=== PATIENT | male | born 1980 ===

== ENCOUNTER 2024-06-29 08:05 | Inpatient (IN) | payer MEDICAID ==
[2024-06-29] VITALS (41 sets, daily range): BP systolic 88–112; BP diastolic 62–80
[~2024-06-29] VITALS: Ht 170.2 cm; Wt 42.9 kg
[2024-06-29] MEDS ORDERED: Lactated Ringer's 1,000 ML IV ONE ×2 (08:40→08:58)
[2024-06-29] MEDS ORDERED: Ondansetron HCl 2 MG / ML 2ML Vial ONE (08:54)
[2024-06-29] MEDS ORDERED: Dextrose 50% 50 ML Syringe IV ONE ×2 (09:00→18:33)
[2024-06-29] MEDS ORDERED: Pantoprazole Sodium 40 MG Injection IV ONE (09:00)
[2024-06-29] MEDS ORDERED: Azithromycin 500 MG in NS 250 ML IV ONE (09:05)
[2024-06-29] MEDS ORDERED: CefTRIAXone Sodium 1,000 MG in NS 50 ML IV ONE (09:05)
[2024-06-29] MEDS ORDERED: Dextrose 50% 50 ML Vial IV ONE ×2 (09:10→18:30)
[2024-06-29 09:12] LABS: BASOPHILS ABSOLUTE AUTO 0.01 K/mm3 (0.00-0.23); BASOPHILS PERCENT AUTO 0 % (0-2); EOSINOPHILS PERCENT AUTO 0 % (0-6); IMMATURE GRAN ABSOLUTE AUTO 0.02 K/mm3 (0.00-0.10); IMMATURE GRAN PERCENT AUTO 0 % (0-1); LYMPHOCYTES ABSOLUTE AUTO 0.55 K/mm3 (0.84-5.20); LYMPHOCYTES PERCENT AUTO 8 % (21-46); MONOCYTES ABSOLUTE AUTO 0.05 K/mm3 (0.16-1.47); MONOCYTES PERCENT AUTO 1 % (4-13); Mean Corpuscular HGB 15.5 pg (26.0-34.0); Mean Corpuscular HGB Conc 26.3 g/dL (31.5-36.5); Mean Corpuscular Volume 59 fL (80-100); NEUTROPHILS ABSOLUTE AUTO 6.43 K/mm3 (1.96-9.15); NEUTROPHILS PERCENT AUTO 91 % (41-73); Platelet Count 345 K/mm3 (150-400); RDW Coefficient Variation 22.9 % (11.7-14.2); RDW Standard Deviation 44.8 fL (35.1-46.3); Red Blood Cell Count 2.96 M/mm3 (4.30-5.90); White Blood Cell Count 7.06 K/mm3 (4.00-11.30)
[2024-06-29] MEDS ORDERED: NS 1,000 ML IV ONE (09:16)
[2024-06-29 09:26] LABS: Mean Platelet Volume 10.1 fL (9.1-12.4)
[2024-06-29 09:26] LABS: Calcium, Ionized (POC) 1.15 mmol/L (1.10-1.46); Chloride (POC) 106 mmol/L (98-108); Creatinine (POC) 1.1 mg/dL (0.8-1.3); Glucose (ISTAT POC) <10 mg/dL (70-99); Hemoglobin (POC) 6.5 g/dL (13.5-17.5); Potassium (POC) 3.8 mmol/L (3.5-5.5); Sodium (POC) 142 mmol/L (135-148); Total CO2 (POC) 24 mmol/L (21-32)
[2024-06-29 09:28] LABS: Hematocrit 17.5 % (37.0-53.0); Hemoglobin 4.6 g/dL (13.5-17.5)
[2024-06-29 09:35] LABS: International Normalized Ratio 1.54
[2024-06-29 09:51] LABS: Magnesium, Blood 2.5 mg/dL (1.6-2.4); Thyroid Stimulating Hormone 1.22 uIU/mL (0.360-4.800)
[2024-06-29] MEDS ORDERED: Ondansetron HCl 2 MG / ML 2ML Vial IV ONE (09:55)
[2024-06-29 09:57] LABS: Influenza A, PCR NEGATIVE (NEGATIVE); Influenza B, PCR NEGATIVE (NEGATIVE); Resp Syncytial Virus, PCR NEGATIVE (NEGATIVE); SARS-Cov-2 (COVID-19) PCR, MMC NEGATIVE (NEGATIVE)
[2024-06-29 10:02] LABS: Albumin, Blood 2.5 g/dL (3.4-5.0); Albumin/Globulin Ratio 0.6 (0.8-1.8); Bilirubin, Total 0.3 mg/dL (0.1-1.0); Bun/Creatinine Ratio 71.8 (12.0-20.0); Calcium, Blood 8.2 mg/dL (8.5-10.1); Creatinine, Blood 0.66 mg/dL (0.60-1.20); Globulin, Blood 4.3 g/dL (2.2-4.0); Potassium, Blood 3.8 mmol/L (3.5-5.5); Total Protein, Blood 6.8 g/dL (6.4-8.2)
[2024-06-29 10:35] LABS: Source, Urine Foley catheter
[2024-06-29 10:39] LABS: Appearance, Urine Clear (Clear); Bilirubin, Urine Neg (Neg); Blood, Urine Neg (Neg); Color, Urine Yellow (P-Yellow); Glucose Qualitative, Urine Neg (Neg); Ketones, Urine Neg (Neg); Leukocyte Esterase, Urine Neg (Neg); Nitrite, Urine Neg (Neg); Protein, Urine Neg (Neg); Urobilinogen, Urine NORM (Normal)
[2024-06-29] MEDS ORDERED: propofoL 100 ML IV SCH (10:45)
[2024-06-29] MEDS ORDERED: D5W-1/2NS 1,000 ML IV SCH (10:50)
[2024-06-29] MEDS ORDERED: FLU VACC TS2024-25(6MOS UP)/PF 45 MCG/0.5 ML SYRINGE IM SCH (10:50)
[2024-06-29 10:55] LABS: Base Excess Venous 0.8 mmol/L; Bicarbonate Venous 23.1 mmol/L (24.0-30.0); pH Blood Venous 7.32 (7.34-7.37)
[2024-06-29] MEDS ORDERED: MethylPREDNISolone Sod Succ 125 MG Vial IV SCH (11:00)
[2024-06-29] MEDS ORDERED: Pantoprazole Sodium 40 MG Injection IV SCH (11:00)
[2024-06-29 11:08] LABS: U Amphetamine Screen DETECTED; U Barbituate Screen Not Detected; U Benzodiazapine Screen Not Detected; U Buprenorphine Screen Not Detected; U Cannabinoids Screen Not Detected; U Cocaine Screen Not Detected; U Methadone Screen Not Detected; U Methamphetamine Screen DETECTED; U Opiates Screen Not Detected; U Oxycodone Screen Not Detected; U Phencyclidine Screen Not Detected
[2024-06-29] MEDS ORDERED: Midazolam HCl 1MG / ML 2ML Vial IV ONE ×2 (11:20→18:30)
[2024-06-29] MEDS ORDERED: Piperacillin/Tazobactam Sod 3.375 GM in NS 100 ML IV ONE (11:35)
[2024-06-29] MEDS ORDERED: Vancomycin HCL 1,250 MG in NS 250 ML IV ONE (11:40)
[2024-06-29] MEDS ORDERED: TRIMETHOPRIM IV ONE (14:40)
[2024-06-29] MEDS ORDERED: DEXTROSE 5% IV ONE (14:40)
[2024-06-29] MEDS ORDERED: SULFAMETHOXAZOLE IV ONE (14:40)
[2024-06-29] MEDS ORDERED: Cetylpyridinium Chloride 1 EA MISC MT SCH (15:10)
[2024-06-29] MEDS ORDERED: LORazepam 2 MG/ML 1ML Injection IV PRN (15:10)
[2024-06-29] MEDS ORDERED: FentaNYL Citrate 50 MCG/ML 2 ML Injection IV PRN (15:10)
[2024-06-29] MEDS ORDERED: Piperacillin/Tazobactam Sod 3.375 GM in NS 100 ML IV SCH (16:00)
[2024-06-29] MEDS ORDERED: Hydrogen Peroxide 1.5 % Solution MT SCH (16:00)
[2024-06-29] MEDS ORDERED: NS 500 ML IV ONE (17:21)
[2024-06-29] MEDS ORDERED: NS 500 ML IV PRN (17:25)
[2024-06-29] MEDS ORDERED: Dextrose 50% 50 ML Vial ONE (18:14)
[2024-06-29 18:30] LABS: Hematocrit 24.9 % (37.0-53.0); Hemoglobin 7.7 g/dL (13.5-17.5); Mean Corpuscular HGB 20.6 pg (26.0-34.0); Mean Corpuscular HGB Conc 30.9 g/dL (31.5-36.5); NRBC ABSOLUTE 0.02 K/mm3 (0.00-0.02); NRBC Auto 0.8 /100 WBC (0.0-0.2); Platelet Count 192 K/mm3 (150-400); RDW Coefficient Variation 27.1 % (11.7-14.2); RDW Standard Deviation 63.6 fL (35.1-46.3); Red Blood Cell Count 3.73 M/mm3 (4.30-5.90); White Blood Cell Count 2.58 K/mm3 (4.00-11.30)
[2024-06-29] MEDS ORDERED: SuccINYLCHOLINE Chloride 100 MG/5 ML 5MLSYR IV ONE (18:30)
[2024-06-29] MEDS ORDERED: Ketamine HCl 100 MG / ML 5ML Vial IV ONE (18:30)
[2024-06-29 18:31] LABS: Mean Corpuscular Volume 67 fL (80-100)
[2024-06-29 18:35] LABS: Percent Saturation 35.5 % (20.0-50.0)
[2024-06-29 18:53] LABS: BAND PERCENT MAN 18 % (0-8); BASOPHILS PERCENT MAN 0 % (0-2); EOSINOPHILS PERCENT MAN 0 % (0-6); LYMPHOCYTES PERCENT MAN 8 % (21-46); MONOCYTES PERCENT MAN 0 % (4-13); NEUTROPHILS ABSOLUTE MAN 2.37 K/mm3 (1.96-9.15); SEG NEUTROPHILS PERCENT MAN 74 % (41-73); TOTAL CELLS COUNTED 100
--- NOTE | 2024-06-29 21:29 | NUR ---
ASSUMPTION OF CARE ASSUMED CARE OF PATIENT AT 1900, BEDSIDE SHIFT REPORT RECEIVED FROM KE RN. PT RESTING IN BED INTUBATED AND SEDATED. PROPOFOL INFUSING AT 30MCG/KG/MIN. PT WITHDRAWS ALL EXTREMITIES TO PAINFUL STIMULI. PT DOES NOT FOLLOW DIRECTION, DOES NOT OPEN EYES WITH STIMULATION. HR 70'S SINUS, LEVOPHED INFUSING AT 8MCG/MIN TO MAINTAIN MAP >65. VENT SETTINGS AC/VC+ 16/450/5/55%, OXYGEN SATURATION >95%. ABDOMEN SOFT, BOWEL TONES HYPOACTIVE. OG TUBE IN PLACE CLAMPED. TEMP VELASCO IN PLACE PATENT DRAINING DARK YELLOW URINE TO GRAVITY. PIV IN PLACE TO RFA, TIMOTHY, AND LFA SL. CENTRAL LINE IN PLACE TO RIJ INFUSING D5 1/2 NS AT 75MLS/HR. LEVOPHED AND PROPOFOL ALSO INFUSING THROUGHOUT CENTRAL LINE, SEE FLOWSHEET FOR MEDICATION TITRATIONS. BED IN LOWEST POSITION, CARE CONTINUES.
[2024-06-30] VITALS (100 sets, daily range): BP systolic 82–106; BP diastolic 48–78
[2024-06-30] MEDS ORDERED: DEXTROSE 5% IV SCH
[2024-06-30] MEDS ORDERED: TRIMETHOPRIM IV SCH
[2024-06-30] MEDS ORDERED: SULFAMETHOXAZOLE IV SCH
[2024-06-30] MEDS ORDERED: NS 250 ML IV PRN (00:15)
[2024-06-30 00:33] LABS: Hematocrit 23.2 % (37.0-53.0); Hemoglobin 7.2 g/dL (13.5-17.5)
[2024-06-30] MEDS ORDERED: Vancomycin HCL 750 MG in NS 250 ML IV SCH (01:00)
[2024-06-30 04:01] LABS: Base Excess Venous 0.9 mmol/L; Bicarbonate Venous 24.9 mmol/L (24.0-30.0); PCO2 Venous 34.2 mmHg (38-42); pH Blood Venous 7.47 (7.34-7.37)
[2024-06-30 04:10] LABS: Hematocrit 21.4 % (37.0-53.0); Hemoglobin 6.9 g/dL (13.5-17.5); Mean Corpuscular HGB 21.2 pg (26.0-34.0); Mean Corpuscular HGB Conc 32.2 g/dL (31.5-36.5); Mean Corpuscular Volume 66 fL (80-100); Mean Platelet Volume 9.3 fL (9.1-12.4); Platelet Count 134 K/mm3 (150-400); RDW Standard Deviation 60.3 fL (35.1-46.3); Red Blood Cell Count 3.26 M/mm3 (4.30-5.90); White Blood Cell Count 12.61 K/mm3 (4.00-11.30)
--- NOTE | 2024-06-30 04:29 | NUR ---
PROVIDER NOTIFICATION OF WOUNDS DR. PALOMINO NOTIFIED OF WOUNDS. CARE CONTINUES.
[2024-06-30 04:39] LABS: Albumin, Blood 1.9 g/dL (3.4-5.0); Albumin/Globulin Ratio 0.6 (0.8-1.8); Bilirubin, Total 0.8 mg/dL (0.1-1.0); Calcium, Blood 7.3 mg/dL (8.5-10.1); Creatinine, Blood 0.67 mg/dL (0.60-1.20); Globulin, Blood 3.4 g/dL (2.2-4.0); Magnesium, Blood 1.7 mg/dL (1.6-2.4); Phosphorus, Blood 2.6 mg/dL (2.5-4.9); Potassium, Blood 4.5 mmol/L (3.5-5.5); Total Protein, Blood 5.3 g/dL (6.4-8.2)
[2024-06-30 05:30] LABS: BAND PERCENT MAN 30 % (0-8); BASOPHILS PERCENT MAN 0 % (0-2); EOSINOPHILS PERCENT MAN 0 % (0-6); LYMPHOCYTES ABSOLUTE MAN 0.37 K/mm3 (0.84-5.20); LYMPHOCYTES PERCENT MAN 3 % (21-46); METAMYELOCYTE ABSOLUTE MAN 0.37 K/mm3 (0.00-0.00); METAMYELOCYTE PERCENT MAN 3 % (0-0); MONOCYTES PERCENT MAN 0 % (4-13); NEUTROPHILS ABSOLUTE MAN 11.85 K/mm3 (1.96-9.15); SEG NEUTROPHILS PERCENT MAN 64 % (41-73); TOTAL CELLS COUNTED 100
--- NOTE | 2024-06-30 05:49 | NUR ---
PT UPDATE HGB RESULTED THIS AM AT 6.9, ORDER FROM DR. DIAZ TO TRANSFUSE 1 UNIT PRBC FOR HGB LESS THAN 7. ORDER PLACED FOR BLOOD TRANSFUSION. UPON REVEIWING THE CHART PT DOES NOT HAVE BLOOD CONSENT SIGNED AT THIS TIME. PT HAS PREVIOUSLY RECEIVED 2 UNITS PRBC'S IN THE ER, PT INTUBATED AND UNABLE TO CONSENT TO BLOOD TRANSFUSION. NO FAMILY PRESENT OR LISTED ON THE PATIENTS FACE SHEET. OKAY TO TRANSFUSE BLOOD PRODUCTS AT THIS TIME PER DR. PALOMINO DUE TO PT EMERGENT NEED.
--- NOTE | 2024-06-30 05:53 | NUR ---
SHIFT SUMMARY NO ACUTE CHANGES THIS SHIFT. PT CONTINUES TO REST IN BED, INTUBATED AND SEDATED. PROPOFOL INFUSING AT 15MCG/KG/MIN. PT WITHDRAWS EXTREMITIES TO NOXIOUS STIMULI, GRIMACES, AND MOVES LEGS SPONTANEOUSLY. PT DOES NOT FOLLOW DIRECTION WHEN PROMPTED. HR 60-80'S SINUS, LEVOPHED INFUSING AT 3MCG/MIN TO MAINTAIN MAP >65. VENT SETTINGS AC/VC+ 16/450/5/35%, OXYGEN SATURATION >95%. BOWEL TONES ACTIVE THROUGHOUT, OG TUBE IN PLACE CLAMPED. TEMP VELASCO IN PLACE PATENT DRAINING YELLOW URINE TO GRAVITY. PIV IN PLACE TO RFA, LFA AND TIOMTHY. CENTRAL LINE IN PLACE TO RIJ. D5 1/2 NS INFUSING AT 75MLS/HR. BED IN LOWEST POSITION, CARE CONTINUES.
[2024-06-30] MEDS ORDERED: FentaNYL Citrate 50 MCG/ML 2 ML Injection IV SCH (12:00)
[2024-06-30 13:23] LABS: Hematocrit 23.3 % (37.0-53.0); Hemoglobin 7.7 g/dL (13.5-17.5)
[2024-06-30] MEDS ORDERED: Midazolam HCL 50 MG in NS 40 ML IV SCH (14:00)
[2024-06-30] MEDS ORDERED: Atropine Sulfate 0.1 MG/ML 10ML SYR IV PRN (14:20)
[2024-06-30 16:44] LABS: Vancomycin, Trough 20.2 ug/mL (5.0-10.0)
--- NOTE | 2024-06-30 17:53 | NUR ---
MOTHER'S CONTACT INFO VANESA GARZA [phone] MOTHER LIVES IN [place]
[2024-06-30] MEDS ORDERED: DOPamine HCl 400 MG in Dextrose 5% 250 ML IV SCH (18:00)
--- NOTE | 2024-06-30 18:11 | NUR ---
Update on Family and Friend information: Per Friend who brought patient into the hospital. Friends name is Mihir Blas his number is [phone]. Mihir came in [facility] to get an update on his friend Kendell Mcclain" Merle. Mihir stated that he just got word from his sister that she found Kendell "Kike" on the streets homeless in [place]. She request to have Kendell "Kike" to stay with Mihir to get him off the streets. He agreed to let Kendell "Kike" stay, Mihir said he had to carry Kendell into the house and care for him the first night and 1/2 but didn't feel he could do more and said he needed to come into the hospital. Mihir did state that Kendell did live with him 15 yrs ago but lost contact with him. Mihir asked questions on if Kendell was waking up and how he over all was doing. Kendell's mother Xin Bloom called this evening as well. She stated she does live in [place]. Her number is [phone]. She stated she got a call today from our care management team but was not able to call till this evening. Per Dr Wright who spoke with Xin Bloom, Xin has not seen or heard from her son for a year. See Dr Wright's notes on updates she gave to Xin.
--- NOTE | 2024-06-30 18:12 | NUR ---
SHIFT SUMMARY PATIENT REMAINS INTUBATED, VENT SETTINGS AC/VC 16/450/5/35% WITH O2 SATS > 95%. PROPOFOL DISCONTINUED DUE TO BRADYCARDIA DOWN TO 40'S. ATROPINE PRN AND DOPAMINE STARTED. ECHO COMPLETED. WITH SEDATION OFF, PATIENT OPENED EYES SPONTANEOUSLY AND FOLLOWED COMMANDS TO ALL FOUR EXTREMITIES. VERSED STARTED FOR SEDATION/COMFORT. LEVOPHED OFF, WITH SBP > 90 AND MAP > 65. TRCIKLE TUBE FEEDS STARTED TODAY, PIVOT 1.5 INFUSING THROUGH OG TUBE AT 15ML/HR. TEMP VELASCO REMIANS IN PLACE, DRAINING YELLOW URINE. HEMOGLOBIN 7.7 POST UNIT OF BLOOD. 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
[2024-06-30 20:54] LABS: Hematocrit 22.9 % (37.0-53.0); Hemoglobin 7.5 g/dL (13.5-17.5)
[2024-06-30] MEDS ORDERED: Arginine/Glutamine/Calcium Hmb 1 Packet PT SCH (21:00)
[2024-06-30] MEDS ORDERED: Vancomycin HCL 1,000 MG in NS 250 ML IV SCH (21:00)
--- NOTE | 2024-06-30 22:05 | NUR ---
ASSUME CARE: BEDSIDE REPORT RECIEVED FROM BISHNU BONILLA. PT INTUBATED AND SEDATED. RASS -4. VERSED AT 4 MG/HR AT SHIFT CHANGE, TITRATED DOWN TO 1 MG/HR FOR BASELINE ASSESSMENT. SBP SOFT, MAP 60s. DOPAMINE 1 MCG/KG/MIN AT SHIFT CHANGE, DOPAMINE TITRATED TO 3 MCG/KG/MIN. SPO2>95% ON VENT, SETTINGS ACVC 16/450/9 AT 55%. WILL UPDATE NEEDED.
[2024-07-01] VITALS (91 sets, daily range): BP systolic 77–120; BP diastolic 53–86
[2024-07-01 05:07] LABS: Hematocrit 23.6 % (37.0-53.0); Hemoglobin 7.7 g/dL (13.5-17.5); Mean Corpuscular HGB 22.1 pg (26.0-34.0); Mean Corpuscular HGB Conc 32.6 g/dL (31.5-36.5); Mean Corpuscular Volume 68 fL (80-100); Platelet Count 87 K/mm3 (150-400); RDW Coefficient Variation 26.6 % (11.7-14.2); RDW Standard Deviation 63.9 fL (35.1-46.3); Red Blood Cell Count 3.48 M/mm3 (4.30-5.90); White Blood Cell Count 11.23 K/mm3 (4.00-11.30)
[2024-07-01 05:29] LABS: BAND PERCENT MAN 10 % (0-8); BASOPHILS PERCENT MAN 0 % (0-2); EOSINOPHILS PERCENT MAN 0 % (0-6); LYMPHOCYTES ABSOLUTE MAN 0.33 K/mm3 (0.84-5.20); LYMPHOCYTES PERCENT MAN 3 % (21-46); MONOCYTES ABSOLUTE MAN 0.22 K/mm3 (0.16-1.47); MONOCYTES PERCENT MAN 2 % (4-13); NEUTROPHILS ABSOLUTE MAN 10.66 K/mm3 (1.96-9.15); SEG NEUTROPHILS PERCENT MAN 85 % (41-73); TOTAL CELLS COUNTED 100
[2024-07-01 05:37] LABS: Magnesium, Blood 1.5 mg/dL (1.6-2.4)
[2024-07-01 05:41] LABS: Albumin, Blood 1.8 g/dL (3.4-5.0); Albumin/Globulin Ratio 0.5 (0.8-1.8); Bilirubin, Total 0.8 mg/dL (0.1-1.0); Bun/Creatinine Ratio 63.5 (12.0-20.0); Calcium, Blood 7.7 mg/dL (8.5-10.1); Creatinine, Blood 0.55 mg/dL (0.60-1.20); Globulin, Blood 3.6 g/dL (2.2-4.0); Phosphorus, Blood 1.7 mg/dL (2.5-4.9); Potassium, Blood 3.9 mmol/L (3.5-5.5); Total Protein, Blood 5.4 g/dL (6.4-8.2)
[2024-07-01] MEDS ORDERED: Magnesium Sulf 2 GM/Water 50ML 50 ML IV ONE (06:00)
--- NOTE | 2024-07-01 06:21 | NUR ---
SHIFT SUMMARY: PT INTUBATED AND SEDATED. VERSED ON SB FOR MOST OF THE NIGHT, RASS -3. PT STARTED PULLING AT RESTRAINTS AND BECOMING MORE AGITATED AROUND THIS AM , RASS +1, VERSED RESTARTED AT 1 MG/HR. SBP 80-90s, MAP >65. DOPAMINE AT 2 MCG/KG/MIN. SPO2>95% ON VENT, SETTINGS ACVC 16/450/5 AT 55%. OG PATENT INFUSING TF PIVOT 1.5 AT 15 ML/HR. TEMP VELASCO PATENT DRAINING TO GRAVITY. HR DROPS DOWN INTO THE 40s INTERMITTENTLY, BUT MAINLY 50s-70s. WILL REPORT TO ONCOMING RN.
[2024-07-01] MEDS ORDERED: Potassium Phosphate Dibasic 20 MM in Dextrose 5% 500 ML IV ONE (06:45)
[2024-07-01] MEDS ORDERED: Mag Sulfate 1 GM/D5% 100ML 100 ML IV STA (08:11)
--- NOTE | 2024-07-01 08:21 | NUR ---
START OF SHIFT THIS NURSE ASSUMED CARE AT APPROXIMATELY 0700. PT SEDATED AND INTUBATED ON 1 OF VERSED AND 2.5 OF DOPAMINE. PT HAS NO S/S OF PAIN AND DOES NOT FOLLOW COMMANDS, PT WILL GRIMACE TO TRAPEZIUS SQUEEZE BUT WILL NOT WITHDRAWAL OR LOCOLIZE. WILL CONTINUE WITH THE PLAN OF CARE.
[2024-07-01] MEDS ORDERED: Enoxaparin 30 MG/0.3 ML SYR SC SCH (09:00)
[2024-07-01] MEDS ORDERED: Multivitamins-Minerals Liquid 15 ML Oral Syringe PT SCH (09:00)
[2024-07-01] MEDS ORDERED: Protein Supplement 30 ML UD PT SCH (09:00)
[2024-07-01] MEDS ORDERED: Thiamine HCl 100 MG Tab PT SCH (09:00)
[2024-07-01] MEDS ORDERED: Lactobacil 2-S.Thermo-Bifido 1 1 Cap PT SCH (09:00)
--- NOTE | 2024-07-01 12:59 | NUR ---
NEURO STATUS PROVIDER ASKED PATIENT TO WIGLE TOES, PT APPEARED WEAK BUT ATTEMPTED. PT ALSO OPENED EYES WHEN INSTRUCTED, PT REQUIRES TIME TO PROCESS QUESTION AND NEEDS MULTIPLE REQUESTS BUT WILL ATTEMPT TASK.
[2024-07-01 15:02] LABS: International Normalized Ratio 1.32; Prothrombin Time Results 13.8 Sec (9.7-11.5)
[2024-07-01 15:09] LABS: Anti-Xa UFH, PHA Monitoring <0.10 IU/mL
[2024-07-01] MEDS ORDERED: Dose Adjust by Pharmacy XX STA (15:12)
[2024-07-01] MEDS ORDERED: Heparin Sodium,Porcine/0.5 NS 500 ML IV SCH (15:15)
[2024-07-01] MEDS ORDERED: Trimethoprim 80MG/Sulfamethoxazole 400MG/10ML UDC PT SCH (16:00)
[2024-07-01] MEDS ORDERED: FentaNYL Citrate 50 MCG/ML 2 ML Injection IV ONE (16:25)
[2024-07-01] MEDS ORDERED: Lansoprazole 15 MG TAB.RAP.DR PT SCH (16:30)
[2024-07-01 17:47] LABS: Automated BF RBC Count 0.029 M/mm3 (0-0)
--- NOTE | 2024-07-01 17:57 | NUR ---
SHIFT SUMMARY PT RECEIVED A VENOUS DOPPLER DUPLEX OF THE LEFT UPPER ARM, SEE REPORT FOR DETAILS. PT RECEIVED A CONTRAST CT FOR CONCERNS OF A PULMONARY EMBOLISM, SEE REPORT FOR MORE DETAILS. MD NOTIFIED THIS NURSE OF A NEW MODERATE SIZE PNEUMOTHORAX. MD PLACED R PLEURAL PIGTAIL CHEST TUBE. DURING PROCEDURE MD ORDERED A 2MG PUSH/BOLUS OF VERSED THAT WAS DRAWN FROM BAG PER MD. CULTURE OF PLEURAL FLUID SENT DOWN TO LAB FOR A CULTURE. HR GOAL CHANGED FROM 60 TO 50 FOR DOPAMINE GTT. VERSED GTT INFUSING AT 2MG/HR. PT PLACED ON AIRBORNE PRECAUTIONS D/T SUSPICIOUS ROUND CYST LIKE FINDING ON CHEST XRAY AND CT. WILL CONTINUE WITH THE PLAN OF CARE.
[2024-07-01 17:58] LABS: Body Fluid WBC Count 94480 /mm3 (0-999); RBC Count, Body Fluid 29000 /mm3 (0-0)
[2024-07-01 18:43] LABS: Total Cell Count, Body Fluid 100
[2024-07-01 19:11] LABS: Appearance, Body Fluid Turbid (Clear); Color, Body Fluid Yellow (None-Yellow)
--- NOTE | 2024-07-01 20:50 | NUR ---
ASSUME CARE: REPORT RECIEVED FROM DAY SHIFT RN. PT INTUBATED AND SEDATED, RASS -3. VERSED GTT AT 2 MG/HR. SBP 110s, MAP>65. HR 50s, HR HIGH 40s INTERMITTENTLY. DOPAMINE GTT AT 10 MCG/KG/MIN. SPO2>95% ON VENT, SETTINGS 16/450/5 AT 35%. RT PLEURAL PIGTAIL CHEST TUBE IN PLACE, DRESSING C/D/I. OG PATENT INFUSING TF. TEMP VELASCO PATENT DRAINING TO GRAVITY. WILL UPDATE NEEDED.
[2024-07-01 23:15] LABS: BASOPHILS ABSOLUTE AUTO 0.01 K/mm3 (0.00-0.23); BASOPHILS PERCENT AUTO 0 % (0-2); EOSINOPHILS PERCENT AUTO 0 % (0-6); Hematocrit 27.2 % (37.0-53.0); Hemoglobin 8.8 g/dL (13.5-17.5); IMMATURE GRAN ABSOLUTE AUTO 0.08 K/mm3 (0.00-0.10); IMMATURE GRAN PERCENT AUTO 1 % (0-1); LYMPHOCYTES ABSOLUTE AUTO 0.73 K/mm3 (0.84-5.20); LYMPHOCYTES PERCENT AUTO 7 % (21-46); MONOCYTES ABSOLUTE AUTO 0.21 K/mm3 (0.16-1.47); MONOCYTES PERCENT AUTO 2 % (4-13); Mean Corpuscular HGB 21.8 pg (26.0-34.0); Mean Corpuscular HGB Conc 32.4 g/dL (31.5-36.5); Mean Corpuscular Volume 67 fL (80-100); NEUTROPHILS PERCENT AUTO 91 % (41-73); Platelet Count 75 K/mm3 (150-400); RDW Coefficient Variation 27.2 % (11.7-14.2); RDW Standard Deviation 64.6 fL (35.1-46.3); Red Blood Cell Count 4.04 M/mm3 (4.30-5.90); White Blood Cell Count 10.93 K/mm3 (4.00-11.30)
[2024-07-02] VITALS (91 sets, daily range): BP systolic 89–120; BP diastolic 61–89
[2024-07-02] MEDS ORDERED: Dose Adjust by Pharmacy XX STA ×4 (00:23→21:34)
[2024-07-02] MEDS ORDERED: Heparin Sodium 5000 Units/ML 1ML MDV IV ONE ×2 (00:25→08:50)
[2024-07-02] MEDS ORDERED: Dopamine/Dextrose 250 ML IV SCH (02:00)
--- NOTE | 2024-07-02 06:11 | NUR ---
SHIFT SUMMARY: PT INTUBATED AND SEDATED, RASS -2 TO +1. PT AGITATED PULLING AT RESTRAINTS AT TIMES, APPEARED MORE ALERT, BUT DID NOT FOLLOW COMMANDS. VERSED GTT AT 3 MG/HR. SP02>95% ON VENT, SETTINGS 16/450/5 AT 35%. SBP 90s-100s, MAP>65. HR 50s, DOPAMINE AT 10 MCG/KG/MIN. HEPARIN GTT AT 20 MCG/KG/HR. OG PATENT INFUSING TF AT 15 ML/HR. TEMP VELASCO PATENT DRAINING TO GRAVITY. CHEST TUBE DRESSING C/D/I WITH SEROSANGUINOUS OUTPUT. UNABLE TO PLACE SCDs DUE TO PT WOUNDS ON BLE. WILL REPORT TO ONCOMING RN.
[2024-07-02 06:40] LABS: Hematocrit 28.2 % (37.0-53.0); Mean Corpuscular HGB 21.8 pg (26.0-34.0); Mean Corpuscular HGB Conc 31.9 g/dL (31.5-36.5); Mean Corpuscular Volume 68 fL (80-100); Platelet Count 78 K/mm3 (150-400); RDW Coefficient Variation 27.2 % (11.7-14.2); RDW Standard Deviation 65.6 fL (35.1-46.3); Red Blood Cell Count 4.13 M/mm3 (4.30-5.90); White Blood Cell Count 13.23 K/mm3 (4.00-11.30)
[2024-07-02 06:56] LABS: Bun/Creatinine Ratio 76.7 (12.0-20.0); Creatinine, Blood 0.4 mg/dL (0.60-1.20); Magnesium, Blood 1.8 mg/dL (1.6-2.4); Phosphorus, Blood 1.4 mg/dL (2.5-4.9); Potassium, Blood 3.7 mmol/L (3.5-5.5)
[2024-07-02] MEDS ORDERED: Sodium Phosphate 30 MM in Dextrose 5% 500 ML IV STA (07:42)
[2024-07-02 08:32] LABS: Vancomycin, Trough 13.1 ug/mL (5.0-10.0)
[2024-07-02] MEDS ORDERED: dexmedeTOMIDine 100 ML IV SCH (09:15)
[2024-07-02] MEDS ORDERED: NS 1,000 ML IV ONE (09:20)
[2024-07-02 11:53] LABS: HIV 1,2 COMBO ANTIGEN/ANTIBODY Negative (Negative)
[2024-07-02] MEDS ORDERED: FentaNYL Citrate 50 MCG/ML 2 ML Injection IV SCH (16:00)
--- NOTE | 2024-07-02 17:08 | NUR ---
PATIENT SEDATION CHANGED FROM VERSED TO PRECEDEX. PATIT IS AWAKE AND CALM, INTERACTING WITH ME AFTER MEDICATION CHANGE. VERSED REMAINS AT BESIDE PENDING AGITATION. PT FOLLOWING COMMANDS IN ALL EXTREMETIES. AFEBRILE; NSR TO SB ON HYDRO PLANT SITE MANAGER. GOOD URINE OUTPUT, COMPARABLE TO INPUT. VENT WEANING STARTED TODAY, REQUIRING 15/5 ON SPONTANEOUS MODE, NOT READY FOR EXTUBATION PER DR. ZAVALETA. AIRBORNE PRECAUTIONS REMOVED FOLLOWING DR. ZAVALETA REVIEW OF CHEST CT. PT REMAINS IN CONTACT FOR MRSA OF THE WOUNDS.
--- NOTE | 2024-07-02 20:58 | NUR ---
ASSUME CARE: REPORT RECIEVED FROM DAY SHIFT RN. PT INTUBATED AND SEDATED, RASS 0. PRECEDEX GTT AT 0.5 MCG/KG/HR. PT MORE ALERT TONIGHT AND ABLE TO FOLLOW COMMANDS AND MAKE NEEDS KNOWN. SBP 97, MAP>65. HR 50s-70s, DOPAMINE GTT AT 10 MCG/KG/MIN. SP02>95% ON VENT, SETTINGS ACVC 16/450/5 AT 35%. OG PATENT INFUSING TF. VELASCO PATENT DRAINING TO GRAVITY. WILL UPDATE NEEDED.
[2024-07-03] VITALS (93 sets, daily range): BP systolic 88–110; BP diastolic 58–82
[2024-07-03 03:15] LABS: BASOPHILS ABSOLUTE AUTO 0.02 K/mm3 (0.00-0.23); BASOPHILS PERCENT AUTO 0 % (0-2); EOSINOPHILS PERCENT AUTO 0 % (0-6); Hematocrit 27.3 % (37.0-53.0); Hemoglobin 8.5 g/dL (13.5-17.5); IMMATURE GRAN PERCENT AUTO 1 % (0-1); LYMPHOCYTES ABSOLUTE AUTO 1.87 K/mm3 (0.84-5.20); LYMPHOCYTES PERCENT AUTO 12 % (21-46); MONOCYTES ABSOLUTE AUTO 0.39 K/mm3 (0.16-1.47); MONOCYTES PERCENT AUTO 3 % (4-13); Mean Corpuscular HGB 21.6 pg (26.0-34.0); Mean Corpuscular HGB Conc 31.1 g/dL (31.5-36.5); Mean Corpuscular Volume 69 fL (80-100); NEUTROPHILS ABSOLUTE AUTO 13.45 K/mm3 (1.96-9.15); NEUTROPHILS PERCENT AUTO 85 % (41-73); Platelet Count 84 K/mm3 (150-400); RDW Coefficient Variation 27.9 % (11.7-14.2); RDW Standard Deviation 67.9 fL (35.1-46.3); Red Blood Cell Count 3.94 M/mm3 (4.30-5.90); White Blood Cell Count 15.83 K/mm3 (4.00-11.30)
[2024-07-03] MEDS ORDERED: Dose Adjust by Pharmacy XX STA (03:29)
[2024-07-03] MEDS ORDERED: Peg 400/Hypromellose/Glycerin 15 DROP/ML BTL BOTHEYES PRN (03:30)
[2024-07-03 03:36] LABS: Albumin/Globulin Ratio 0.5 (0.8-1.8); Bilirubin, Direct 0.2 mg/dL (0.0-0.3); Bilirubin, Indirect 0.4 mg/dL (0.1-0.7); Bilirubin, Total 0.6 mg/dL (0.1-1.0); Bun/Creatinine Ratio 76.3 (12.0-20.0); Calcium, Blood 8.1 mg/dL (8.5-10.1); Creatinine, Blood 0.38 mg/dL (0.60-1.20); Globulin, Blood 4.2 g/dL (2.2-4.0); Magnesium, Blood 1.8 mg/dL (1.6-2.4); Phosphorus, Blood 1.3 mg/dL (2.5-4.9); Potassium, Blood 3.6 mmol/L (3.5-5.5); Total Protein, Blood 6.2 g/dL (6.4-8.2)
[2024-07-03] MEDS ORDERED: Potassium Phosphate Dibasic 30 MM in Dextrose 5% 500 ML IV ONE (05:00)
--- NOTE | 2024-07-03 05:19 | NUR ---
SHIFT SUMMARY: PT INTUBATED AND SEDATED, RASS -1. PRECEDEX AT 0.5 MCG/KG/HR. PT ABLE TO MAKE NEEDS KNOWN. SBP 90s-100s, MAP>65. HR 50s-70s, DOPAMINE GTT REMAINS AT 10 MCG/KG/MIN. SPO2>95% ON VENT, SETTINGS ACVC 16/450/5 AT 35%. ALL WOUND CARE DRESSINGS CHANGED DURING BED BATH. OG PATENT INFUSING TF. VELASCO PATENT DRAINING TO GRAVITY. CT DRESSING C/D/I W/ 20 ML OF SEROSANGUINEOUS OUTPUT THIS SHIFT. PT MOM LEV CALLED TO GET UPDATE AND REQUESTED FOR US TO HOLD THE PHONE UP TO PT EAR SO SHE CAN TALK TO HIM, BUT PT REFUSED. PT MOM SAID SHE WOULD CALL BACK TODAY. WILL REPORT TO ONCOMING RN.
[2024-07-03] MEDS ORDERED: MethylPREDNISolone Sod Succ 125 MG Vial IV SCH (09:00)
[2024-07-03] MEDS ORDERED: FentaNYL Citrate 50 MCG/ML 2 ML Injection IV PRN (09:21)
[2024-07-03] MEDS ORDERED: CefTRIAXone Sodium 1,000 MG in NS 100 ML IV SCH (12:00)
[2024-07-03] MEDS ORDERED: Lactated Ringer's 1,000 ML IV SCH (18:00)
--- NOTE | 2024-07-03 18:27 | NUR ---
THROUGHOUT SHIFT PATIENT ALERT AND MAKING NEEDS KNOW TO STAFF WITH HAND GESTURES AND NODDING. PT ON 15/5 PS FOR 5 HOURS AGAIN TODAY BUT COULD NOT TOLERATE 10/5. PER DR. ZAVALETA AND PATIENT REQUEST PRECEDEX TURNED UP TO 0.7MCG/KG/MIN. AFEBRILE, REMAINS ON 10 OF DOPAMINE FOR HR SUPPORT. MODERATE THIN WHITE/CLEAR SECRETIONS IN ETT, MINIMAL IN MOUTH. TF RUNNING AT 15ML/HR, MONITORING PHOS CLOSELY PER DIETARY. HEPARIN GTT ON 22 UNITS. NEPH CONSULTED FOR POLYURIA. NEPH AT BEDSIDE AT 1815.
[2024-07-04] VITALS (96 sets, daily range): BP systolic 79–123; BP diastolic 48–93
[2024-07-04 05:43] LABS: BASOPHILS ABSOLUTE AUTO 0.02 K/mm3 (0.00-0.23); BASOPHILS PERCENT AUTO 0 % (0-2); EOSINOPHILS ABSOLUTE AUTO 0.01 K/mm3 (0.00-0.68); EOSINOPHILS PERCENT AUTO 0 % (0-6); Hemoglobin 8.2 g/dL (13.5-17.5); IMMATURE GRAN ABSOLUTE AUTO 0.09 K/mm3 (0.00-0.10); IMMATURE GRAN PERCENT AUTO 1 % (0-1); LYMPHOCYTES ABSOLUTE AUTO 1.84 K/mm3 (0.84-5.20); LYMPHOCYTES PERCENT AUTO 14 % (21-46); MONOCYTES ABSOLUTE AUTO 0.34 K/mm3 (0.16-1.47); MONOCYTES PERCENT AUTO 3 % (4-13); NEUTROPHILS PERCENT AUTO 83 % (41-73); Platelet Count 83 K/mm3 (150-400)
--- NOTE | 2024-07-04 05:57 | NUR ---
SHIFT SUMMARY PATIENT INTUBATED AND SEDATED ON PRECEDEX, REMAINS MOSTLY ALERT, FOLLOWS COMMANDS, NODS YES/NO, MOVES ALL EXTREMETIES. VERY WEAK. MEDICATED FOR PAIN PRN PER EMAR. SP02 100% ON VENT AC VC 16/450/5/35%. CHEST TUBE REMAINS IN PLACE, 15 MLS SEROSANGUINOUS OUTPUT, INTERMITTEN BUBBLING UNCHANGED. HR SR 70s AND BP WITH MAP >65, DOPAMINE INFUSING. OG WITH TF PIVOT AT GOAL RATE. TEMP VELASCO PATENT AND DRAINING TO GRAVITY, UO DECREASING THIS SHIFT. WOUND T/O WITH DRESSINGS C/D/I. MOBILITY AND STRETCHING DONE. CHG BATH DONE. REPOSITIONED Q2 HOURS. CALL LIGHT IN REACH
[2024-07-04 05:58] LABS: Bun/Creatinine Ratio 87.3 (12.0-20.0); Calcium, Blood 8.4 mg/dL (8.5-10.1); Creatinine, Blood 0.36 mg/dL (0.60-1.20); Magnesium, Blood 1.8 mg/dL (1.6-2.4); Phosphorus, Blood 1.7 mg/dL (2.5-4.9); Potassium, Blood 3.8 mmol/L (3.5-5.5)
[2024-07-04 06:03] LABS: Hematocrit 26.3 % (37.0-53.0); Mean Corpuscular HGB 21.9 pg (26.0-34.0); Mean Corpuscular HGB Conc 31.2 g/dL (31.5-36.5); Mean Corpuscular Volume 70 fL (80-100); Red Blood Cell Count 3.75 M/mm3 (4.30-5.90)
[2024-07-04] MEDS ORDERED: Clarify Drug Order XX ONE (06:10)
[2024-07-04] MEDS ORDERED: Potassium Phosphate Dibasic 30 MM in Dextrose 5% 500 ML IV ONE (06:25)
[2024-07-04] MEDS ORDERED: Cetylpyridinium Chloride 1 EA MISC MT SCH (08:00)
--- NOTE | 2024-07-04 08:25 | NUR ---
Brule of Care: Care assumed at 0700hr. Patient intubated and sedated with precedex gtt at 0.7 mcg/kg/hr. Patient rouses spontaneously and to verbal stimuli. Able to nod head yes/no appropriately and make needs known, call light in react. C/o generalized pain effectively managed with prn fentanyl. Dopamine gtt 10mcg/kg/min, MAP's 65-70's, HR shows sinus rhythm in the 70's. Will attempt to titrate both precedex and Dopamine gtt down. Vent changed from AC to pressure support 10/[address] James this morning, patient thus far tolerating without difficulty. Rt IJ in place, patent and intact. Chest tube to Rt lateral chest wall, site WNL and secured with sutures and STAT lock. Drainage system shows minimal amount of serous drainage and small amount of bubbling with each breath (Dr. James aware). Goodman cath patent and intact, clear/yellow output.
[2024-07-04 08:55] LABS: Vancomycin, Trough 12.5 ug/mL (5.0-10.0)
[2024-07-04] MEDS ORDERED: MethylPREDNISolone Sod Succ 125 MG Vial IV SCH (09:00)
--- NOTE | 2024-07-04 11:20 | NUR ---
Spiritual care visit conducted. Kendell (pt) is awake but appears exhausted. Pt has recently been extubated. Pt displays difficult speaking but accepts a visit. Pt interjects with "i've gone to [place] my whole life." Affirmed pt's spiritual connection and prayed. Pt thanked me for the vist.
[2024-07-04] MEDS ORDERED: Hydrogen Peroxide 1.5 % Solution MT SCH (12:00)
--- NOTE | 2024-07-04 15:56 | NUR ---
MET WITH PT THIS AFTERNOON AT BEDSIDE. HE IS ALERT, ORIENTED. HE WOULD LIKE TO CHANGE CODE STATUS BACK TO FULL CODE. I GAVE HIM HIS MOM'S NUMBER AND ASSISTED HIM WITH DIALING. HE TALKED TO HER BY PHONE AND TOLD HER HE LOVES HER "SO MUCH." LEFT HIM TO CONTINUE HIS PHONE CALL PRIVATELY. WILL CHECK IN WITH HIM AGAIN TOMORROW.
--- NOTE | 2024-07-04 17:49 | NUR ---
Shift Summary: Patient extubated at 1040hr this morning, precedex gtt stopped shortly after extubation. No s/s of respiratory distress/SOB for remainder of shift. Occasional weak congested cough, requiring deep oral suctioning to assist removal of secretions. 2L/NC after extubation, SpO2 94-98%. Later afternoon, patient's SpO2 decreased to low 80's, though no clinical changes in patient. NC titrated up to 10L, then pt placed on Oxi-mask. Call placed to Dr. James, STAT chest x-ray obtained. No significant findings on chest x-ray per Dr. James. Patient continued to show no signs of distress or increase in work of breathing. Chest tube site and drainage system intact of properly functioning. O2 has since been titrated back down to 2-6L. Frequent ROM, stretching, and repositioning provided per patient's request. Goodman cath remains patent and intact. Rt IJ remains patent and intact. Will continue to monitor until report to NOC shift RN.
[2024-07-04] MEDS ORDERED: Arginine/Glutamine/Calcium Hmb 1 Packet PO SCH (21:00)
[2024-07-04] MEDS ORDERED: Protein Supplement 30 ML UD PO SCH (21:00)
[2024-07-04] MEDS ORDERED: D5W-1/2NS 1,000 ML IV SCH (23:55)
[2024-07-04 23:57] LABS: QUANTIFERON MITOGEN MINUS NIL 0.36 IU/mL; QUANTIFERON NIL 0.01 IU/mL
[2024-07-05] VITALS (43 sets, daily range): BP systolic 89–131; BP diastolic 64–88
[2024-07-05 03:39] LABS: Hemoglobin 7.7 g/dL (13.5-17.5); Platelet Count 95 K/mm3 (150-400)
[2024-07-05 03:56] LABS: Bun/Creatinine Ratio 86.7 (12.0-20.0); Creatinine, Blood 0.35 mg/dL (0.60-1.20); Phosphorus, Blood 2.6 mg/dL (2.5-4.9); Potassium, Blood 3.7 mmol/L (3.5-5.5)
[2024-07-05] MEDS ORDERED: Clarify Drug Order XX ONE (04:40)
--- NOTE | 2024-07-05 05:40 | NUR ---
SHIFT SUMMARY PATIENT IS ALERT AND ORIENTED X4. SP02 94% ON 5L MASK MOST THE NIGHT, NOW ON 2-3L VIA NC THIS AM. PATIENT HAS WEAK COUGH HOWEVER ABLE TO COUGH UP SECRETIONS BETTER THIS MORNING, TRIED SMALL SIPS OF WATER WITH DISSOLVED MEDS AND ICE CHIPS AND PATIENT DOING BETTER WITH PO INTAKE. CHEST TUBE REMAINS TO SUCTION, MINIMAL TO NO OUTPUT THIS SHIFT. HR SB-SR 55-60s. BP STABLE. DENIES CP PRESSURE. HEPARIN DRIP REMAINS INFUSING. STARTED ON A D5 1/2 NS DRIP FOR LOW BLOOD GLUCOSE. VELASCO PATENT AND DRAINING TO GRAVITY. NO BM THIS SHIFT. PATIENT ENCOURAGED TO HELP WITH TASKS AND BE MORE INDEPENDENT.
[2024-07-05] MEDS ORDERED: Ketamine HCl 100 MG / ML 5ML Vial IV ONE (06:51)
[2024-07-05] MEDS ORDERED: Rocuronium Bromide 10 MG/ML 5ML Injection IV ONE (06:51)
[2024-07-05] MEDS ORDERED: Multivitamins 1 Tab PO SCH (09:00)
[2024-07-05] MEDS ORDERED: Thiamine HCl 100 MG Tab PO SCH (09:00)
--- NOTE | 2024-07-05 11:00 | NUR ---
CHEST TUBE 1056 CHEST TUBE PLACED TO WATER SEAL PER DR. BORJAS AFTER REVIEWING STAT CXR.
--- NOTE | 2024-07-05 11:10 | NUR ---
PHYSICIAN NOTIFICATION 1111 DR. MONSIVAIS NOTIFIED OF SPEECH THERAPY SWALLOW EVAL - CLEAR LIQUIDS/THIN LIQUIDS. PROVIDER TO ADJUST MEDICATIONS ACCORDINGLY.
--- NOTE | 2024-07-05 11:37 | NUR ---
DESAT EPISODE 1040 PT EXPERIENCED ACUTE OXYGEN DESATURATION REQUIRING O2 MASK AT 10L. PT WAS ABLE TO RECOVER AND WAS SWITCHED BACK TO 4LNC. OXYGEN SATURATION SEEMS TO BE POSITIONAL AND PT BEGINS USING ABDOMINAL ACCESSORY MUSCLES WHEN POSITIONED HIGH FOWLERS.
--- NOTE | 2024-07-05 13:27 | NUR ---
FAMILY COMMUNICATION SPOKE WITH PT'S MOTHER, VANESA GARZA - UPDATED HER TO STATUS AND PLAN OF CARE. SHE EXPRESSES THAT SHE WOULD LIKE TO BE NOTIFIED WE NEAR A DISCHARGE DATE SO THAT SHE AND OTHER FAMILY MEMBERS CAN ARRANGE TO TAKE PATIENT BACK HOME TO [place]. SHE REPORTS SHE DOES NOT WANT HIM TO BE RELEASED TO HIS FRIEND, TOMY CEDEÑO. I EXPLAINED THAT WE ARE UNABLE TO CONTROL WHO HE LEAVES WITH AT TIME OF DISCHARGE BUT LET HER KNOW THAT WE WOULD MAKE EFFORTS FOR HER TO HAVE TIMELY NOTIFICATION OF HIS DISCHARGE. CASE MANAGEMENT CONSULTED.
--- NOTE | 2024-07-05 16:39 | NUR ---
SHIFT SUMMARY PT ALERT AND ORIENTED, REQUIRES SOME REORIENTATION, RESPONSES DELAYED. VS STABLE. POSITIONAL DYSPNEA - O2 NEEDS INCREASE WHEN PT IS IN HIGH FOWLERS POSITION, HAS VARIED BETWEEN 4LNC AND 10L MASK. SPEECH CLEARED FOR CLEAR LIQUID DIET, CONCERN FOR DIFFICULTY SWALLOWING. NOON CAPILLARY BG 65, D51/2NS INCREASED, RECHECK VIA CVL 195. VELASCO CATHETER TO GRAVITY. ADEQUATE URINARY OUTPUT. KNEES AND HANDS MOTTLED BUT WARM, REMAINDER OF SKIN ASSESSMENT REMAINS THE SAME. CHEST TUBE PLACED TO H2O SEAL AROUND 11. PT WORKED WITH PATIENT, SAT HIM UP ON SIDE OF BED X2, PT REPORTED FEELING DIZZY AND NAUSEATED, REQUIRED OXYGEN TO BE INCREASED FROM 3L TO 6L TO MAINTAIN >90%. UPDATED PT'S MOTHER TO STATUS AND PLAN OF CARE. PT DID HAVE VISITORS THIS AFTERNOON FOR AROUND 30 MINS, TOMY WOODS. CVL TO RIJ. PIV TO RFA. HEPARIN AND D51/2NS INFUSING PER JUN. SAFETY, COMFORT, HYGIENE ADDRESSED.
--- NOTE | 2024-07-05 20:53 | NUR ---
ASSUMED CARE AT APPROX 1900 PATIENT IS ALERT AND ORIENTED X4, ANXIOUS AT TIMES. SP02 95% ON 6L VIA NC. PATIENT ATTEMPTED TO DRINK PO MEDICATIONS DISSOLVED IN WATER AND LUNG SOUNDS BECAME COARSE, COUGH IS WEAK, ONLY ABLE TO GET ABOUT HALF THE MEDICATIONS DOWN. RR 30s TO 40s. HR SR-ST 80s-105. BP STABLE, DENIES CP/PRESSURE. CHEST TUBE TO WATER SEAL, SMALL AMOUNT OF SEROSANGUINOUS OUTPUT. VELASCO PATENT AND DRAINING TO GRAVITY. PATIENT HAS SMALL LOOSE BM/INCONTINENT. REPOSITIONED AND CALL LIGHT IN REACH
[2024-07-05 21:03] LABS: BASOPHILS ABSOLUTE AUTO 0.04 K/mm3 (0.00-0.23); BASOPHILS PERCENT AUTO 0 % (0-2); EOSINOPHILS PERCENT AUTO 0 % (0-6); Hematocrit 27.2 % (37.0-53.0); Hemoglobin 8.1 g/dL (13.5-17.5); IMMATURE GRAN ABSOLUTE AUTO 0.15 K/mm3 (0.00-0.10); IMMATURE GRAN PERCENT AUTO 1 % (0-1); LYMPHOCYTES ABSOLUTE AUTO 1.37 K/mm3 (0.84-5.20); LYMPHOCYTES PERCENT AUTO 7 % (21-46); MONOCYTES ABSOLUTE AUTO 0.54 K/mm3 (0.16-1.47); MONOCYTES PERCENT AUTO 3 % (4-13); Mean Corpuscular HGB 21.6 pg (26.0-34.0); Mean Corpuscular HGB Conc 29.8 g/dL (31.5-36.5); Mean Corpuscular Volume 73 fL (80-100); NEUTROPHILS ABSOLUTE AUTO 17.39 K/mm3 (1.96-9.15); NEUTROPHILS PERCENT AUTO 89 % (41-73); Platelet Count 176 K/mm3 (150-400); RDW Coefficient Variation 28.6 % (11.7-14.2); RDW Standard Deviation 71.7 fL (35.1-46.3); Red Blood Cell Count 3.75 M/mm3 (4.30-5.90); White Blood Cell Count 19.49 K/mm3 (4.00-11.30)
[2024-07-05 21:07] LABS: Mean Platelet Volume 10.1 fL (9.1-12.4)
[2024-07-05] MEDS ORDERED: Naloxone HCl 0.4MG / ML 1ML Vial ONE ×4 (22:37→22:44)
[2024-07-05] MEDS ORDERED: NS 1,000 ML IV ONE (22:53)
[2024-07-05] MEDS ORDERED: NS 1,000 ML IV SCH (22:55)
[2024-07-05] MEDS ORDERED: Midazolam HCL 50 MG in NS 40 ML IV PRN (23:05)
[2024-07-05] MEDS ORDERED: Sodium Chloride 0.45% 1,000 ML IV SCH (23:35)
[2024-07-05 23:47] LABS: Base Excess Venous -3.4 mmol/L; Bicarbonate Venous 21.5 mmol/L (24.0-30.0); PCO2 Venous 52.4 mmHg (38-42); pH Blood Venous 7.26 (7.34-7.37)
[2024-07-06] VITALS (78 sets, daily range): BP systolic 75–112; BP diastolic 49–85
--- NOTE | 2024-07-06 00:30 | NUR ---
IN ROOM TO REPOSITION PATIENT AND CLEAN UP BM AT APPROX 2215, PATIENT LETHARGIC, WHEN ASKED IF HE WAS OK PATIENT KEPT NODDING YES AND GIVING ME A THUMBS UP, VERY WITHDRAWN AND OXYGEN REQUIREMENTS INCREASING. PUPILS 5 EQUAL AND REACTIVE. 2232- PATIENTS 02 SATS DECREASED TO 60%, BEGAN BAGGING PATIENT AND CALLED A RESPIRATORY CODE. DR. BORJAS WAS CALLED AND CHEST TUBE BACK TO SUCTION. CBG 188 2238- PATIENT SATS DID INCREASE ON BIPAP HOWEVER PATIENT UNABLE TO PROTECT AIRWAY. PATIENT HAD VISITOR JUST BEFORE THIS AND SEVERAL DOSES OF NARCAN GIVEN WITH MINIMAL IMPROVEMENT. 2257- 60 MCG KETAMINE AND 100 MG KATALINA 2258- PATIENT INTUBATED ETT 8.0 AND 25 AT GUMS, VENT SETTINGS AC VC 22/450/5/100%. VBG DONE AND RATE CHANGED TO 24. WILL GO TO CT WHEN PATIENT STABLE
[2024-07-06 01:37] LABS: Albumin/Globulin Ratio 0.5 (0.8-1.8); Bilirubin, Total 0.4 mg/dL (0.1-1.0); Bun/Creatinine Ratio 112.9 (12.0-20.0); Calcium, Blood 7.4 mg/dL (8.5-10.1); Creatinine, Blood 0.25 mg/dL (0.60-1.20); Globulin, Blood 3.9 g/dL (2.2-4.0); Total Protein, Blood 5.9 g/dL (6.4-8.2)
[2024-07-06 03:03] LABS: Base Excess Venous -1.2 mmol/L; Bicarbonate Venous 23.1 mmol/L (24.0-30.0); PCO2 Venous 45.2 mmHg (38-42); pH Blood Venous 7.34 (7.34-7.37)
[2024-07-06] MEDS ORDERED: Potassium Chloride 40 MEQ in NS 250 ML IV ONE (03:40)
[2024-07-06] MEDS ORDERED: Hydrogen Peroxide 1.5 % Solution MT SCH (04:00)
[2024-07-06] MEDS ORDERED: FentaNYL Citrate 50 MCG/ML 2 ML Injection IV PRN (04:25)
[2024-07-06] MEDS ORDERED: Naloxone HCl 0.4MG / ML 1ML Vial IV ONE (05:30)
[2024-07-06 05:38] LABS: Hematocrit 24.6 % (37.0-53.0); Hemoglobin 7.5 g/dL (13.5-17.5); Platelet Count 136 K/mm3 (150-400)
[2024-07-06 05:51] LABS: Magnesium, Blood 1.7 mg/dL (1.6-2.4); Phosphorus, Blood 1.8 mg/dL (2.5-4.9)
[2024-07-06] MEDS ORDERED: Pantoprazole Sodium 40 MG Injection IV SCH (06:00)
[2024-07-06] MEDS ORDERED: Clarify Drug Order XX ONE (06:10)
[2024-07-06] MEDS ORDERED: Sodium Phosphate 30 MM in Dextrose 5% 500 ML IV STA (06:38)
[2024-07-06] MEDS ORDERED: Albumin (Human) 25gm/100ml 100 ML IV ONE (06:40)
--- NOTE | 2024-07-06 06:43 | NUR ---
SHIFT SUMMARY PATIENT REMAINS INTUBATED AND SEDATED ON VERSED AND PRN FENTANYL. AC VC 20/450/5/45%, RR 22. CHEST TUBE TO SUCTION, SMALL AMOUNT OF OUTPUT 30 MLS SEROUS. HR SR 70s, BP STABLE. VELASCO PATENT AND DRAINING TO GRAVITY. OG WAS PLACED DURING INTUBATION AND ANDVANCED AFTER XRAY PER INDIO, NO REPEAT XRAY DONE YET AND NOT USING OG AT THIS TIME. LARGE BROWN/LIQUID BMS THIS SHIFT. ATTEMPTED TO UPDATE FAMILY BUT UNABLE TO GET IN CONTACT WITH THEM
[2024-07-06] MEDS ORDERED: Cetylpyridinium Chloride 1 EA MISC MT SCH (08:00)
[2024-07-06] MEDS ORDERED: Thiamine HCl 100 MG in NS 50 ML IV SCH (09:00)
[2024-07-06] MEDS ORDERED: Nicotine 14 MG PATCH TOP SCH (09:00)
[2024-07-06] MEDS ORDERED: propofoL 100 ML IV SCH (09:15)
[2024-07-06] MEDS ORDERED: Potassium Phosphate Dibasic 30 MM in Dextrose 5% 500 ML IV STA (09:17)
[2024-07-06] MEDS ORDERED: Mag Sulfate 1 GM/D5% 100ML 100 ML IV STA (09:32)
[2024-07-06] MEDS ORDERED: Multivitamins-Minerals Liquid 15 ML Oral Syringe PT SCH (10:55)
[2024-07-06 12:59] LABS: Bun/Creatinine Ratio 107.8 (12.0-20.0); Calcium, Blood 6.9 mg/dL (8.5-10.1); Creatinine, Blood 0.2 mg/dL (0.60-1.20); Phosphorus, Blood 2.8 mg/dL (2.5-4.9); Potassium, Blood 3.7 mmol/L (3.5-5.5)
[2024-07-06 16:02] LABS: Albumin, Blood 1.8 g/dL (3.4-5.0); Albumin/Globulin Ratio 0.5 (0.8-1.8); Bilirubin, Total 0.3 mg/dL (0.1-1.0); Bun/Creatinine Ratio 84.9 (12.0-20.0); Calcium, Blood 7.2 mg/dL (8.5-10.1); Creatinine, Blood 0.27 mg/dL (0.60-1.20); Globulin, Blood 3.4 g/dL (2.2-4.0); Potassium, Blood 3.9 mmol/L (3.5-5.5); Total Protein, Blood 5.2 g/dL (6.4-8.2)
--- NOTE | 2024-07-06 17:00 | NUR ---
VISIT FROM PATIENT'S FRIEND ABRIL: PATIENT'S FRIEND ABRIL (AND ABRIL'S SON) CAME TO THE UNIT HALLWAY TO DISCUSS A PHONE CALL THEY RECEIVED REQUESTING THAT THEY DO NOT VISIT THE PATIENT. THIS RN EXPLAINED THAT HE HAD TAKEN A TURN FOR THE WORSE AND THAT IT WAS IMPORTANT FOR HIM TO HAVE A CONTROLLED ENVIRONMENT. BOTH VISITORS WERE UNDERSTANDING OF THIS AND THAT WE NEEDED TO BE SURE THAT HE HADN'T RECEIVED ANY ILLICIT SUBSTANCES. BOTH VISITORS DENIED PROVIDING ANY ILLICIT SUBSTANCE TO THE PATIENT LAST NIGHT. THEY WERE CALM, RESPECTFUL AND FOLLOWED SOCIAL NORMS DURING THIS INTERACTION. ABRIL REITERATED THAT HE WAS THE ONE WHO BROUGHT THE PATIENT TO THE HOSPITAL AND THAT THE PATIENT CLEARLY NEEDS TO BE OFF OF ANY ILLICIT SUBSTANCES. HE IS RESPECTING THE BOUNDARIES AND REPORTED THAT HE WILL CHECK IN BUT NOT TRY TO VISIT THE PATIENT FOR THE NEXT FEW DAYS. NOTIFIED NURSE INSTRUCTOR.
--- NOTE | 2024-07-06 18:44 | NUR ---
DROP IN POC GLUCOSE: PATIENT'S POC GLUCOSE DECREASED FROM 154 TO 90 SINCE THE D5 1/2NS RATE HAD BEEN DECREASED. DISCUSSED WITH DR. BORJAS. NEW ORDERS TO INCREASE RATE OF D5 1/2NS.
--- NOTE | 2024-07-06 18:47 | NUR ---
SHIFT SUMMARY: NEURO: BY THIS AFTERNOON AND AFTER PATIENT TRANSITIONED FROM VERSED TO PROPOFOL FOR SEDATION, PATIENT WAS ABLE TO NOD YES/NO TO QUESTIONS. PATIENT VERY WEAK. PATIENT MEDICATED FOR PAIN PER PRNS. PATIENT TURNED Q2HR. CARDIAC: LEVOPHED RESTARTED TO MAINTAIN MAPS >65. AT THE TIME OF THIS NOTE, LEVOPHED AT 5 MCG/MIN. HR IN THE 70S. INCREASE IN HR NOTED WITH PAIN AND/OR ANXIETY. RESPIRATORY: BY END OF THE SHIFT, VENT SETTINGS: AC/VC 20/450/5/35%. SPO2 >96%. RR IN THE 20S. COARSE SOUNDS THROUGHOUT. UTILIZED PRNS TO MAINTAIN TOLERANCE OF VENT. GI/: TUBE FEEDING RESTARTED TODAY: PIVOT 1.5 AT 15 ML/HR. PATIENT HAD MULTIPLE LIQUID BROWN BOWEL MOVEMENTS AND ONE SMALL FORMED BM. VELASCO IN PLACE AND DRAINING FREELY YELLOW URINE. ABOUT 2.4 L OUT DURING THIS SHIFT. NO FOUL ODOR NOTED. PSYCHSOCIAL: PATIENT APPEARS TO BE ANXIOUS AT TIMES. PATIENT RESPONDED WELL TO ENCOURAGMENT AND STAFF PRESENCE IN THE ROOM.
[2024-07-07] VITALS (101 sets, daily range): BP systolic 90–148; BP diastolic 46–114
[2024-07-07 03:40] LABS: Hemoglobin 6.5 g/dL (13.5-17.5); Platelet Count 191 K/mm3 (150-400)
[2024-07-07 04:02] LABS: Magnesium, Blood 1.8 mg/dL (1.6-2.4); Phosphorus, Blood 1.2 mg/dL (2.5-4.9)
[2024-07-07 04:51] LABS: Hematocrit 20.7 % (37.0-53.0)
--- NOTE | 2024-07-07 05:45 | NUR ---
SHIFT SUMMARY PT HAS TOLERATED SHIFT WITH SOME MINOR CHANGES TO MEDICATIONS. PT REMAINS INTUBATED AND EASILY AROUSABLE ON SEDATION MEDICATIONS. PT HAS FREQUENTLY NODDED HEAD "YES" WHEN ASKED IF HE IS IN PAIN. PT RESPONDS WELL TO ANTI-ANXIETY MEDICATIONS WELL. DURING MORNING CARES AND VELASCO CARE, SKIN TEAR WAS NOTED ON SHAFT OF PTS PENIS. CHARGE NURSE WAS ALERTED, PICTURES WERE TAKEN AND ARE NOW IN CHART. AT THIS TIME, THIS NURSE IS AWAITING ALL LAB LEVELS TO BE RESULTED. WILL CONTINUE TO MONITOR UNTIL REPORT PASSED TO DAY SHIFT TEAM.
[2024-07-07] MEDS ORDERED: Clarify Drug Order XX ONE (06:35)
[2024-07-07 06:39] LABS: Bun/Creatinine Ratio 86.3 (12.0-20.0); Calcium, Blood 7.6 mg/dL (8.5-10.1); Creatinine, Blood 0.31 mg/dL (0.60-1.20); Potassium, Blood 3.5 mmol/L (3.5-5.5)
--- NOTE | 2024-07-07 07:27 | NUR ---
ASSUMPTION OF CARE: ASSUMED CARE OF PATIENT. PATIENT RESTING COMFORTABLY IN BED. VITALS STABLE ON 6 MCG/MIN OF LEVOPHED WITH MAPS >65. HR IN THE 70S. SPO2 100%. VENT SETTINGS AC/VC 20/450/5/30%. PATIENT'S RR IN THE LOW 20S. SPO2 AT 100%. HEPARIN GTT CONTINUES AT 22 UNITS/KG/HR. PROPOFOL AT 30 MCG/KG/MIN. D5 1/2 NS AT 75 MLS/HR. VELASCO IN PLACE AND DRAINING YELLOW URINE. CHEST TUBE SECURED TO THE CHEST AND DRAINING FREELY. SEROSANGINOUS FLUID IN THE COLLECTION CHAMBER.
[2024-07-07 08:27] LABS: Vancomycin, Trough 16.8 ug/mL (5.0-10.0)
[2024-07-07] MEDS ORDERED: Multivitamins 1 Tab PT SCH (09:00)
[2024-07-07] MEDS ORDERED: Potassium Phosphate Dibasic 30 MM in Dextrose 5% 500 ML IV STA (09:01)
--- NOTE | 2024-07-07 19:19 | NUR ---
SHIFT SUMMARY: NEURO: PATIENT HAD A RASS SCORE OF 0- (-1) THROUGHOUT THE SHIFT. PATIENT INTERACTIVE AND COMMUNICATIVE WITH STAFF ABLE. MEDICATED FOR PAIN ONCE PER PRNS. PATIENT REPOSITIONED Q2HR. PROPOFOL CONTINUED AT 25 MCG/KG/MIN. RESPIRATORY: PATIENT FAILED SBT THIS MORNING. PATIENT LASTED FOR ABOUT 45 MINUTES BEFORE HIS RR REACHED THE 40S. LUNG SOUNDS IMPROVED OVER YESTERDAY. SPO2 >94% THROUGHOUT THE SHIFT. PATIENT DENIED SHORTNESS OF BREATH. VENT SETTINGS AT THE END OF SHIFT: AC/VC 18/450/5/30%. CHEST TUBE HAD MINIMAL SEROUS OUTPUT (ABOUT 2ML). CARDIAC: LEVOPHED TITRATED THROUGHOUT THE SHIFT TO MAINTAIN MAPS >65. AT THE END OF SHIFT, LEVOPHED AT 4 MCG/MIN. HR IN THE 60S-70S. PATIENT EXPERIENCED A BRIEF RUN OF BRADYCARDIA WITH RATES LOW 47. THIS RESOLVED ON ITS OWN WITHIN A FEW MINUTES. PATIENT RECEIVED A UNIT OF PRBCS THIS AM WITHOUT EVENT. GI/: TUBE FEED CONTINUES TO RUN AT 15 ML/HR. DR. AGUIAR ROUNDED ON THE PATIENT AND REPORTED THAT THE BEST TIME TO DISCUSS A PEG TUBE IS CLOSER TO DISCHARGE. PATIENT HAD LARGE AMOUNTS OF CLEAR YELLOW URINE. NO FOUL ODOR NOTED. PATIENT REPORTED HE WAS HUNGRY TODAY. PSYCHSOCIAL: PATIENT DID NOT REPORT ANXIETY TODAY. PATIENT APPEARED CALM AND COMFORTABLE IN THE BED. PATIENT'S MOTHER REQUESTED THAT ONLY FAMILY BE ALLOWED TO VISIT THE PATIENT. CONTINUING EDUCATION DIRECTOR AWARE.
[2024-07-08] VITALS (58 sets, daily range): BP systolic 91–137; BP diastolic 48–96
[2024-07-08 04:01] LABS: Hematocrit 22.4 % (37.0-53.0); Hemoglobin 7.1 g/dL (13.5-17.5); Mean Platelet Volume 9.9 fL (9.1-12.4); Platelet Count 163 K/mm3 (150-400)
[2024-07-08 04:27] LABS: Magnesium, Blood 1.7 mg/dL (1.6-2.4)
[2024-07-08 04:44] LABS: Albumin, Blood 1.7 g/dL (3.4-5.0); Albumin/Globulin Ratio 0.5 (0.8-1.8); Bilirubin, Total 0.5 mg/dL (0.1-1.0); Bun/Creatinine Ratio 84.7 (12.0-20.0); Calcium, Blood 7.3 mg/dL (8.5-10.1); Creatinine, Blood 0.25 mg/dL (0.60-1.20); Globulin, Blood 3.5 g/dL (2.2-4.0); Phosphorus, Blood 0.9 mg/dL (2.5-4.9); Potassium, Blood 2.7 mmol/L (3.5-5.5); Total Protein, Blood 5.2 g/dL (6.4-8.2)
[2024-07-08] MEDS ORDERED: Potassium Phosphate Dibasic 30 MM in Dextrose 5% 500 ML IV ONE (04:55)
[2024-07-08] MEDS ORDERED: Clarify Drug Order XX ONE (06:20)
--- NOTE | 2024-07-08 06:43 | NUR ---
SHIFT SUMMARY PT HAS TOLERATED SHIFT WELL WITH VERY FEW CHANGES. PT IS ABLE TO NOD OR SHAKE HEAD TO INDICATE A YES OR NO ANSWER. PT HAS REQUIRED FREQUENT PAIN MEDICATIONS AND HAS BEEN ABLE TO INDICATE TO THIS NURSE WHEN HE IS IN PAIN. WILL CONTINUE TO MONITOR UNTIL REPORT PASSED TO DAY SHIFT TEAM.
[2024-07-08] MEDS ORDERED: Potassium Chloride 40 MEQ in NS 250 ML IV ONE (07:35)
[2024-07-08] MEDS ORDERED: Potassium Phosphate Dibasic 30 MM in Dextrose 5% 500 ML IV STA (09:24)
[2024-07-08] MEDS ORDERED: Potassium Chloride 20 MEQ/15 ML UDC PT ONE (10:00)
--- NOTE | 2024-07-08 10:20 | NUR ---
THIS RN ASSUMED CARE OF PT AT 0700. PT IS ABLE TO NOD HEAD TO YES AND NO QUESTIONS, BUT PT IS INTUBATED. PT SOUNDS CLEAR, WAS PUT ON SPONTANEOUS WITH SEDATION TURNED OFF, WAS AT BEDSIDE. PT DID BECOME SHORT OF BREATH AND SAID TO TURN PRESSURE SUPPORT UP TO 14. PT DOES HAVE A CHEST TUBE TO -15 SUCTION WITH MINIMAL OUTPUT. PT HEART RATE IN THE 70s, BLOOD PRESSURE STABLE AT 135/119, LEVO ON STANDBY, PT DENIES CHEST PAIN UPON ASSESSMENT. PT DOES HAVE A CENTRAL LINE THAT IS CLEAN/DRY/INTACT, PT HAS VELASCO CATHETER THAT IS DRAINING TO GRAVITY WITH GOOD OUTPUT. PT POTASSIUM WAS LOW AT 2.7 THIS AM, NEW ORDERS HAVE BEEN PLACED TO RAISE POTASSIUM LEVEL. NO OTHER INTERVENTIONS AT THIS TIME. PLAN OF CARE CONTINUED.
[2024-07-08] MEDS ORDERED: Dose Adjust by Pharmacy XX STA ×2 (11:04→16:35)
[2024-07-08] MEDS ORDERED: Furosemide 10 MG/ML 4ML Vial IV ONE (13:00)
--- NOTE | 2024-07-08 17:20 | NUR ---
PT SUMMARY SAW PT BEDSIDE, HGB 7.1, PROVIDER DID NOT WANT TO TRANSFUSE, PROVIDER WANTED TO KEEP BLOOD DRAWS TO A MINIMUM, PT PHOPHORUS AND POTASSIUM WAS REPLACED THROUGHOUT THE DAY PER ORDERS FROM , SAID TO PUT PT ON FULL SUPPORT THROUGHOUT THE NIGHT, PT WAS HAVING CHEST PAIN, EKG SHOWED NORMAL SINUS RHYTHM, AWARE AND ORDERED A SMALL DOSE OF LASIX, CHEST PAIN RESOLVED. TUBE FEEDS WERE OFF DUE TO POSSIBLE REFEEDING SYNDROME, SAID TO RESTART AFTER K-PHOS WAS COMPLETED, RESTARTED AT SAME RATE. NO NEW INTERVENTIONS AT THIS TIME. PLAN OF CARE CONTINUED.
--- NOTE | 2024-07-08 23:19 | NUR ---
ASSUME CARE: BEDSIDE REPORT RECIEVED FROM [facility] RN. PT INTUBATED ON SPONTANEOS INITIALLY W/SEDATION ON SB. PT ALERT AND ABLE TO MAKE NEEDS KNOWN. PT PLACED ON ACVC AT 1999, PROPOFOL STARTED AT 25 MCG/KG/MIN. RASS 0. BP SOFT, LEVOPHED STARTED AT 2 MCG/MIN TO KEEP MAP >65. WHEN OGT WAS FLUSHED THE PT HAS SOME EMESIS, CXR DONE TO VERIFY PLACEMENT, TUBE WAS PULLED OUT TOO FAR SO IT WAS PULLED. WAS CALLED AND SAID TO TRY TO PLACE A DOBHOFF. CT IN PLACE, DRESSING C/D/I. VELASCO IN PLACE DRAINING TO GRAVITY. WILL UPDATE NEEDED.
[2024-07-09] VITALS (92 sets, daily range): BP systolic 92–130; BP diastolic 49–90
[2024-07-09] MEDS ORDERED: Dose Adjust by Pharmacy XX STA (00:17)
[2024-07-09 03:18] LABS: Hematocrit 21.1 % (37.0-53.0); Hemoglobin 6.8 g/dL (13.5-17.5); Mean Corpuscular HGB 23.5 pg (26.0-34.0); Mean Corpuscular HGB Conc 32.2 g/dL (31.5-36.5); Mean Corpuscular Volume 73 fL (80-100); Mean Platelet Volume 9.2 fL (9.1-12.4); Platelet Count 154 K/mm3 (150-400); RDW Coefficient Variation 27.8 % (11.7-14.2); RDW Standard Deviation 68.7 fL (35.1-46.3); Red Blood Cell Count 2.89 M/mm3 (4.30-5.90); White Blood Cell Count 7.64 K/mm3 (4.00-11.30)
[2024-07-09 03:37] LABS: Albumin, Blood 1.5 g/dL (3.4-5.0); Albumin/Globulin Ratio 0.4 (0.8-1.8); Bilirubin, Total 0.4 mg/dL (0.1-1.0); Bun/Creatinine Ratio 56.1 (12.0-20.0); Calcium, Blood 7.4 mg/dL (8.5-10.1); Creatinine, Blood 0.3 mg/dL (0.60-1.20); Globulin, Blood 3.6 g/dL (2.2-4.0); Phosphorus, Blood 1.9 mg/dL (2.5-4.9); Potassium, Blood 3.2 mmol/L (3.5-5.5); Total Protein, Blood 5.1 g/dL (6.4-8.2)
[2024-07-09] MEDS ORDERED: Potassium Phosphate Dibasic 30 MM in Dextrose 5% 500 ML IV ONE (04:17)
--- NOTE | 2024-07-09 05:26 | NUR ---
SHIFT SUMMARY: PT INTUBATED AND SEDATED. RASS -1, PROPOFOL AT 25 MCG/KG/MIN. SBP 100s, MAP>65. LEVOPHED AT 1 MCG/MIN. SPO2>95% ON VENT, SETTINGS ACVC 18/450/5 AT 30%. DOBHOFF PLACED, TF RESUMED AT GOAL. CT IN PLACE, DRESSING C/D/I. VELASCO PATENT DRAINING TO GRAVITY. WILL REPORT TO ONCOMING RN.
--- NOTE | 2024-07-09 07:15 | NUR ---
ASSUMPTION OF CARE: ASSUMED CARE OF PATIENT. PATIENT RESTING CALMING IN THE BED. PATIENT FOLLOWING DIRECTIONS AND MAKING NEEDS KNOWN. REPORTED HE WAS COLD. PROVIDED WITH WARM BLANKETS. UNIT OF PRBC INFUSING. VENT SETTINGS AC/VC 18/450/5/30%. SPO2 99%. RR 18. LEVOPHED ON STANDBY. HEPARIN INFUSING AT 26 UNTIS/KG/HR. KPHOS BEING REPLACED AT THIS TIME. VELASCO IN PLACE AND DRAINING FREELY YELLOW URINE. PIVOT 1.5 INFUSING AT 15 MLS/HR INTO DOBHOFF PLACED AT 66 CM. D5 1/2 NS AT 75 ML/HR.
--- NOTE | 2024-07-09 07:55 | NUR ---
SPONTANEOUS BREATHING TRIAL: PROPOFOL TO STANDBY AND PATIENT TRANSITIONED TO SPONTANEOUS FOR SBT. SETTINGS: 14/5/30%. PATIENT TOLERATING WITH RR IN THE LOW TO MID 20S. TIDAL VOLUMES IN THE 300S. PATIENT DENIES SHORTNESS OF BREATH.
[2024-07-09] MEDS ORDERED: Furosemide 10 MG / ML 2ML Vial IV ONE (08:50)
[2024-07-09] MEDS ORDERED: Potassium Chloride 20 MEQ/15 ML UDC PT ONE (09:00)
[2024-07-09] MEDS ORDERED: Potassium Phosphate Dibasic 30 MM in Dextrose 5% 500 ML IV SCH (09:30)
[2024-07-09] MEDS ORDERED: Bisacodyl 10 MG Supp PR PRN (12:25)
[2024-07-09] MEDS ORDERED: Magnesium Hydroxide Conc 10 ML UDC PT PRN (12:25)
[2024-07-09] MEDS ORDERED: Docusate Sodium Liquid 100 MG UDC PT PRN (12:25)
--- NOTE | 2024-07-09 13:00 | NUR ---
DESATURATION: AROUND 12:40, PATIENT STARTED TO SUSTAIN SPO2 IN THE MID 80S. PATIENT DENIED SHORTNESS. ETT SUCTIONING PRODUCED DRY/THICK BROWN SECRETIONS ONE TIME. PATIENT CONTINUED TO HAVE LOW SATURATIONS. DISCUSSED WITH VANIA RT. PATIENT REPORTED HE WAS TIRED AND RR NOW IN THE MID 30S. SPONTANEOUS BREATHING TRIAL ENDED. PRPOFOL RESTARTED AND PATIENT GIVEN PRN FENTANYL TO ASSIST WITH DISCOMFORT AND TRANSITION BACK TO AC/VC 20/450/5/30%. PATIENT CONTINUED TO HAVE SPO2 IN THE MID 80S. NOTIFIED DR. ZAVALETA. CHEST TUBE UNCLAMPED, CHEST TUBE FLUSHED, STAT CXR ORDERED, AND CHEST TUBE DRESSING CHANGED BY DR. ZAVALETA. DISCUSSED VARIOUS CAUSES OF CHANGE. PATIENT CONTINUED TO DENY SHORTNESS OF BREATH OR INCREASED PAIN IN THE RIGHT CHEST. VENT SETTINGS NOW AC/VC 20/450/5/50%. SPO2 94-95%. PATIENT CALM AND COMFORTABLE IN THE BED.
--- NOTE | 2024-07-09 14:08 | NUR ---
TUBE FEED AND FLUSHES: VERIFIED WITH DR. ZAVALETA THAT INCREASING FLUSHES TO 50ML Q4HR AND PIVOT 1.5 UP TO 25 ML/HR IS APPROPRIATE FOR THE PATIENT.
--- NOTE | 2024-07-09 15:30 | NUR ---
Spiritual care visit conducted. Kendell (pt) is awake and has been re-intubated. Pt expresses that a visit is oaky by nodding. The attending nurse has communicated to me that the pt is conversing via writing. I assess the pt's experience and the pt describes his stay as "difficult" and that he is feeling "good." Pt is interested in spiritual matters and asks what uatsdin I attend as well as why. I offer prayer and ask about specific requests. Pt writes down "family." I ask about pt's family and if they've visited, pt affirms this with a nod. Prayed for pt and his connection to family.
--- NOTE | 2024-07-09 18:41 | NUR ---
SHIFT SUMMARY: NEURO: PATIENT HAD INCREASED INTERACTION WITH THE STAFF. PATIENT WRITING OUT QUESTIONS AND MADE A JOKE WITH PEN AND NOTE PAD. PATIENT MEDICATED TWICE FOR PAIN/VENT TOLERANCE. PATIENT ABLE TO MAKE HIS NEEDS KNOWN. PERFORMED ROM WITH SOME NURSE ASSIST. PATIENT WOULD LIKE TO GET UP TO THE CHAIR TOMORROW. PROPOFOL AT 30 MCG/KG/MIN. RESPIRATORY: PATIENT TOLERATED A SPONTANEOUS BREATHING TRIAL FROM ABOUT 07:50 - 11:45. AT THE END OF THE TRIAL, PATIENT EXPERIENCED SPO2 IN THE MID 80S. SEE NURSES' NOTE. CHEST TUBE REMAINED UNCLAMPED FOR THE REST OF THE SHIFT. VENT SETTINGS AT THE END OF SHIFT: AC/VC 18/450/5/50%. SPO2 91-95%.VOLUMES IN THE 400S. RR 20-21. ETCO2 AROUND 20. 30ML OUT FROM THE CT (60ML - THE 30ML FLUSH). SEROUS DRAINAGE. PATIENT DENIED SHORTNESS OF BREATH THROUGHOUT SHIFT. CARDIAC: VITALS STABLE WITH MAPS >65. LEVOPHED REMAINED ON STANDBY. HR IN THE 60S-70S WITH OCCASIONAL BEATRIZ MID 40S-50S THAT DOESN'T SUSTAIN. SBP IN THE 100S-110S. PATIENT HAD 2 UNITS OF PRBCS TOTAL TODAY. TOLERATED WITHOUT ADVERSE REACTIONS. GI/: DOBHOFF AT 65 CM. PIVOT 1.5 INCREASED TO 25 ML/HR. FLUSHES INCREASED TO 50 ML Q4HR. PATIENT REPORTS THAT HE IS HUNGRY. ADEQUATE URINE OUTPUT. ONE SMALL, LIQUID BROWN STOOL. PSYCHSOCIAL: NO ANXIETY NOTED TODAY. PATIENT WAS ABLE TO KEEP HIMSELF CALM DURING UNCOMFORTABLE SITUATIONS. MESSAGE LEFT FOR HIS MOTHER TO UPDATE HER ON THE DAY'S EVENTS.
--- NOTE | 2024-07-09 21:34 | NUR ---
ASSUME CARE: REPORT RECIEVED FROM DAY SHIFT RN. PT INTUBATED AND SEDATED, PROPOFOL AT 30 MCG/KG/MIN, RASS O. PT ALERT USING HIS IPAD AND ABLE TO MAKE NEEDS KNOWN. SPO2>90% ON VENT, SETTINGS ACVC 18/450/5 AT 50%. PT SPO2 DROPPED DOWN TO 88-89%, FIO2 INCREASED TO 60 %. SBP 100s, MAP>65. CT DRESSING C/D/I. DOBHOFF PATENT INFUSING TF. VELASCO IN PLACE DRAINING TO GRAVITY. INCREASED SEDATION FOR PT REST AND SLEEP. CALL LIGHT IN PLACE, WILL UPDATE NEEDED.
[2024-07-10] VITALS (70 sets, daily range): BP systolic 91–135; BP diastolic 51–93
[2024-07-10 04:09] LABS: Hematocrit 28.1 % (37.0-53.0); Hemoglobin 9.5 g/dL (13.5-17.5); Mean Corpuscular HGB 25.8 pg (26.0-34.0); Mean Corpuscular HGB Conc 33.8 g/dL (31.5-36.5); Mean Corpuscular Volume 76 fL (80-100); Mean Platelet Volume 9.3 fL (9.1-12.4); Platelet Count 174 K/mm3 (150-400); RDW Coefficient Variation 24.7 % (11.7-14.2); RDW Standard Deviation 65.7 fL (35.1-46.3); Red Blood Cell Count 3.68 M/mm3 (4.30-5.90); White Blood Cell Count 9.42 K/mm3 (4.00-11.30)
[2024-07-10 04:26] LABS: Albumin, Blood 1.5 g/dL (3.4-5.0); Albumin/Globulin Ratio 0.4 (0.8-1.8); Bilirubin, Total 0.4 mg/dL (0.1-1.0); Calcium, Blood 7.8 mg/dL (8.5-10.1); Creatinine, Blood 0.29 mg/dL (0.60-1.20); Globulin, Blood 3.6 g/dL (2.2-4.0); Phosphorus, Blood 2.2 mg/dL (2.5-4.9); Potassium, Blood 3.7 mmol/L (3.5-5.5); Total Protein, Blood 5.1 g/dL (6.4-8.2)
[2024-07-10] MEDS ORDERED: Potassium Phosphate Dibasic 20 MM in Dextrose 5% 500 ML IV ONE (05:03)
--- NOTE | 2024-07-10 06:20 | NUR ---
SHIFT SUMMARY: PT INTUBATED AND SEDATED. RASS 0, PROPOFOL AT 30 MCG/KG/MIN. PT ABLE TO MAKE NEEDS KNOWN, ANXIOUS AT TIMES. MEDICATED PER EMAR PER PT REQUEST FOR PAIN. VSS, HR 50-70s. SPO2>95% ON VENT, SETTINGS 18/450/5/50%. DOBHOFF PATENT INFUSING TF. VELASCO PATENT DRAINING TO GRAVITY. CT DRESSING C/D/I, NO OUTPUT THIS SHIFT. WILL REPORT TO ONCOMING RN.
[2024-07-10] MEDS ORDERED: Potassium Phosphate Dibasic 30 MM in Dextrose 5% 500 ML IV STA (09:48)
[2024-07-10] MEDS ORDERED: Enoxaparin 60 MG/0.6 ML SYR SC SCH (09:49)
[2024-07-10] MEDS ORDERED: Enoxaparin 100 MG/ML 1ML SYR SC SCH (10:00)
[2024-07-10] MEDS ORDERED: Benzocaine Oral Spray 0.5ML UD MT ONE (12:50)
--- NOTE | 2024-07-10 15:33 | NUR ---
Spiritual care visit attempted. Kendell (pt) is awake. I approached the pt and asked if was interested in a visit. He politely nodded his head "no." Attending nurse informed me that pt has had PT and OT today and is likely tired as a result.
[2024-07-10] MEDS ORDERED: Benzocaine Oral Spray 0.5ML UD MT PRN (17:20)
--- NOTE | 2024-07-10 18:37 | NUR ---
Summary. Pt remains on vent, alert and calm this shift, out of restraints. Pt worked with PT/OT this shift. Cooperative with care. Chest tube clamped by Dr. Mahoney this afternoon, will reassess tomorrow morning. No acute changes, see chart for details.
--- NOTE | 2024-07-10 19:15 | NUR ---
ASSESSMENT/ASSUMED CARE PT SITTING UP IN BED WATCHING TV. INTUBATED AND ON MECH VENT. NO SEDATION. PT ABLE TO WRITE NEEDS. C/O GENERAL PAIN 8/10. MED PER EMAR WITH FENTANYL 50 MCQ WITH GOOD RESULTS. C/O THROAT PAIN, HURRICAINE SPRAY DONE SEE EMAR. RIGHT EYE RED, EYE GTTS PER EMAR DONE. ORAL CARE DONE. REPOSITIONED. LUNGS CLEAR. VENT SETTINGS AC/VC 18/450/5/55%. RESP EVEN AND NONLABORED. HEART RATE REGULAR IN THE 70'S. BP STABLE. LEFT ARM EDEMA NOTED DUE TO DVT. PT RECEIVING LOVENOX. BT+ ABD SOFT AND NONTENDER. DOBHOFF AT 66 CM WITH TUBE FEED PIVOT 1.5 AT GOAL RATE 30 ML/HR WITH WATER AT 50 ML Q4HR. VELASCO CATH PATENT, DRAINING YELLOW URINE. PICC LINE TO RIGHT UPPER WITH DRSG INTACT. NS AT 15 ML/HR. SITE CLEAR. MULTIPLE WOUNDS. TURN Q2HRS. CONT TO MONITOR
[2024-07-10] MEDS ORDERED: Gentamicin Sulfate 0.3% Opth Soln RIGHTEYE SCH (20:00)
[2024-07-11] VITALS (95 sets, daily range): BP systolic 96–144; BP diastolic 53–116
[2024-07-11 04:04] LABS: BASOPHILS ABSOLUTE AUTO 0.01 K/mm3 (0.00-0.23); BASOPHILS PERCENT AUTO 0 % (0-2); EOSINOPHILS ABSOLUTE AUTO 0.01 K/mm3 (0.00-0.68); EOSINOPHILS PERCENT AUTO 0 % (0-6); Hemoglobin 10.3 g/dL (13.5-17.5); IMMATURE GRAN ABSOLUTE AUTO 0.03 K/mm3 (0.00-0.10); IMMATURE GRAN PERCENT AUTO 0 % (0-1); LYMPHOCYTES ABSOLUTE AUTO 1.11 K/mm3 (0.84-5.20); LYMPHOCYTES PERCENT AUTO 14 % (21-46); MONOCYTES ABSOLUTE AUTO 0.47 K/mm3 (0.16-1.47); MONOCYTES PERCENT AUTO 6 % (4-13); Mean Corpuscular HGB 25.6 pg (26.0-34.0); Mean Corpuscular HGB Conc 33.2 g/dL (31.5-36.5); Mean Corpuscular Volume 77 fL (80-100); Mean Platelet Volume 9.3 fL (9.1-12.4); NEUTROPHILS ABSOLUTE AUTO 6.31 K/mm3 (1.96-9.15); NEUTROPHILS PERCENT AUTO 80 % (41-73); Platelet Count 204 K/mm3 (150-400); RDW Coefficient Variation 25.3 % (11.7-14.2); RDW Standard Deviation 67.7 fL (35.1-46.3); Red Blood Cell Count 4.02 M/mm3 (4.30-5.90); White Blood Cell Count 7.94 K/mm3 (4.00-11.30)
[2024-07-11 04:24] LABS: Albumin, Blood 1.5 g/dL (3.4-5.0); Albumin/Globulin Ratio 0.4 (0.8-1.8); Bilirubin, Total 0.5 mg/dL (0.1-1.0); Calcium, Blood 8.2 mg/dL (8.5-10.1); Creatinine, Blood 0.24 mg/dL (0.60-1.20); Globulin, Blood 3.9 g/dL (2.2-4.0); Phosphorus, Blood 2.4 mg/dL (2.5-4.9); Potassium, Blood 3.5 mmol/L (3.5-5.5); Total Protein, Blood 5.4 g/dL (6.4-8.2)
--- NOTE | 2024-07-11 04:59 | NUR ---
SHIFT SUMMARY PT CONT INTUBATED AND ON [facility] VENT. VENT SETTINGS AC/VC 18/450/5/50%. NO SEDATION. PT MED PRN FOR GENERAL PAIN WITH FENTANYL WITH GOOD RESULTS. TURNED Q2HR TO KEEP OFF COCCYX. PICC LINE TO RIGHT UPPER ARM WITH NS AT 15 ML/HR. ORAL CARE DONE Q4HR. POSSIBLE EXTUBATION TODAY. CHEST TUBE TO RIGHT LATERAL CLAMPED. TUBE FEED PIVOT 1.5 AT GOAL 30 ML/HR. REPORT TO ON COMING NURSE. CONT TO MONITOR
--- NOTE | 2024-07-11 12:54 | NUR ---
Spiritual care visit conducted. Kendell (Pt) is awake and alert and accepts visit. I offer to read scripture to pt and pt accepts. I proceed to read Shahzad Chapter 6 25-27 to provide anxiety containment. Normalized pt's experience and provided encourgament. Pt's condition is improving as per information from an attending nurse. Offered prayer and conveyed further availbiltiy to pt.
--- NOTE | 2024-07-11 17:52 | NUR ---
SUMMARY PT INTUBATED, NO SEDATION. PT IS ALERT, ABLE TO MAKE NEEDS KNOWN BY HAND GESTURES OR WRITING ON PAPER. USING CALL LIGHT APPROPRIATELY. SBT FROM ABOUT 1200 TO 1720. THIS EVENING HE STARTED TO FEEL TIRED AND ONLY HAD ONE EPISODE OF SATS DROPPING TO 87% BUT CAME BACK UP WITHOUT INTERVENTION. PT HAS CHEST TUBE THAT WAS UNCLAMPED FOR A COUPLE HOURS TO WATERSEAL THEN RECLAMPED THIS AFTERNOON AT 1220, NO DISTRESS FROM THIS. GOT PT OOB TO RECLINER FOR 2 HOURS TODAY. TOLERATED WELL. WORKED WITH PT AND OT WHILE IN CHAIR AND IS VERY MOTIVATED. HAS BEEN DOING EXERCISES WHILE IN BED AT HIS OWN WILL WELL. HAD A GOOD DAY. NO ACUTE CHANGES.
[2024-07-11] MEDS ORDERED: dexmedeTOMIDine 100 ML IV SCH (20:10)
[2024-07-12] VITALS (46 sets, daily range): BP systolic 91–139; BP diastolic 56–91
[2024-07-12 05:19] LABS: BASOPHILS ABSOLUTE AUTO 0.02 K/mm3 (0.00-0.23); BASOPHILS PERCENT AUTO 0 % (0-2); EOSINOPHILS ABSOLUTE AUTO 0.02 K/mm3 (0.00-0.68); EOSINOPHILS PERCENT AUTO 0 % (0-6); Hematocrit 29.3 % (37.0-53.0); Hemoglobin 9.5 g/dL (13.5-17.5); IMMATURE GRAN ABSOLUTE AUTO 0.03 K/mm3 (0.00-0.10); IMMATURE GRAN PERCENT AUTO 0 % (0-1); LYMPHOCYTES ABSOLUTE AUTO 1.28 K/mm3 (0.84-5.20); LYMPHOCYTES PERCENT AUTO 15 % (21-46); MONOCYTES ABSOLUTE AUTO 0.61 K/mm3 (0.16-1.47); MONOCYTES PERCENT AUTO 7 % (4-13); Mean Corpuscular HGB 25.5 pg (26.0-34.0); Mean Corpuscular HGB Conc 32.4 g/dL (31.5-36.5); Mean Corpuscular Volume 79 fL (80-100); Mean Platelet Volume 9.2 fL (9.1-12.4); NEUTROPHILS ABSOLUTE AUTO 6.87 K/mm3 (1.96-9.15); NEUTROPHILS PERCENT AUTO 78 % (41-73); Platelet Count 228 K/mm3 (150-400); RDW Coefficient Variation 25.5 % (11.7-14.2); RDW Standard Deviation 69.8 fL (35.1-46.3); Red Blood Cell Count 3.72 M/mm3 (4.30-5.90); White Blood Cell Count 8.83 K/mm3 (4.00-11.30)
--- NOTE | 2024-07-12 05:38 | NUR ---
SHIFT SUMMARY: NO SIGNIFICANT CHANGES IN PATIENT CONDITION OVERNIGHT. PT WAS ABLE TO SLEEP THROUGH [place]OOST OF THE NIGHT ON PRECEDEX GTT. HE CONTINUES TO COMMUNICATE NEEDS THROUGH WRITING AND HAND GESTURES. PT HAS BEEN VERY CALM AND COOPERATIVE BUT DID EXPRESS HAVING SOME ANXIETY. HIS CHEST TUBE REMAINED CLAMPED THROUGHOUT NIGHT. VITALS HAVE BEEN STABLE.
[2024-07-12 05:52] LABS: Albumin, Blood 1.5 g/dL (3.4-5.0); Albumin/Globulin Ratio 0.4 (0.8-1.8); Bilirubin, Total 0.3 mg/dL (0.1-1.0); Bun/Creatinine Ratio 137.3 (12.0-20.0); Calcium, Blood 8.1 mg/dL (8.5-10.1); Creatinine, Blood 0.23 mg/dL (0.60-1.20); Globulin, Blood 3.7 g/dL (2.2-4.0); Magnesium, Blood 2.1 mg/dL (1.6-2.4); Phosphorus, Blood 2.3 mg/dL (2.5-4.9); Potassium, Blood 3.7 mmol/L (3.5-5.5); Total Protein, Blood 5.2 g/dL (6.4-8.2)
[2024-07-12] MEDS ORDERED: Potassium Phosphate Dibasic 10 MM in Dextrose 5% 250 ML IV STA (07:17)
--- NOTE | 2024-07-12 07:56 | NUR ---
START OF SHIFT THIS NURSE ASSUMED CARE AT APPROXIMATELY 0700. PT RESTING IN BED UNRESTRAINED ON VENTILATOR. PT SWITCHED OVER TO PRESSURE SUPPORT THIS AM. PT HAS NO S/S OF PAIN OR DISCOMFORT. PT NB-NSR 50'S-70'S. WILL CONTINUE WITH THE PLAN OF CARE.
[2024-07-12] MEDS ORDERED: Thiamine HCl 100 MG Tab PT SCH (09:00)
--- NOTE | 2024-07-12 09:50 | NUR ---
CHEST TUBE DC PLANNED CHEST TUBE REMOVAL DONE SUCCESSFULLY BY MD DIAZ AT APPROXIMATELY 0945.
[2024-07-12] MEDS ORDERED: FentaNYL Citrate 50 MCG/ML 2 ML Injection IV PRN (13:20)
--- NOTE | 2024-07-12 17:05 | NUR ---
SHIFT SUMMARY PT EXTUBATED TODAY AT APPROXIMATELY 1330. PT ABLE TO TOLERATE NC ON 6L THAT WAS SLOWLY TITRATED DOWN TO 2L. PT EDUCATED ON INCENTIVE SPIROMETER AND FLUTTERVALVE WHICH ARE BOTH AT BEDSIDE. PT COMPLAINS OF FULL BODY ACHES AND PAINS, WHICH IS TREATED WITH MEDS ON EMAR. MOTHER AVNESA HAS BEEN UPDATED AT [phone]. PT IS AOX4, AND APPROPRIATE. WILL CONTINUE WITH THE PLAN OF CARE.
[2024-07-13] VITALS (27 sets, daily range): BP systolic 95–148; BP diastolic 58–137
[2024-07-13 04:56] LABS: BASOPHILS ABSOLUTE AUTO 0.02 K/mm3 (0.00-0.23); BASOPHILS PERCENT AUTO 0 % (0-2); EOSINOPHILS ABSOLUTE AUTO 0.04 K/mm3 (0.00-0.68); EOSINOPHILS PERCENT AUTO 1 % (0-6); Hematocrit 31.7 % (37.0-53.0); Hemoglobin 10.2 g/dL (13.5-17.5); IMMATURE GRAN ABSOLUTE AUTO 0.03 K/mm3 (0.00-0.10); IMMATURE GRAN PERCENT AUTO 0 % (0-1); LYMPHOCYTES ABSOLUTE AUTO 1.39 K/mm3 (0.84-5.20); LYMPHOCYTES PERCENT AUTO 18 % (21-46); MONOCYTES ABSOLUTE AUTO 0.61 K/mm3 (0.16-1.47); MONOCYTES PERCENT AUTO 8 % (4-13); Mean Corpuscular HGB 25.6 pg (26.0-34.0); Mean Corpuscular HGB Conc 32.2 g/dL (31.5-36.5); Mean Corpuscular Volume 80 fL (80-100); Mean Platelet Volume 8.9 fL (9.1-12.4); NEUTROPHILS ABSOLUTE AUTO 5.46 K/mm3 (1.96-9.15); NEUTROPHILS PERCENT AUTO 72 % (41-73); Platelet Count 235 K/mm3 (150-400); RDW Coefficient Variation 25.2 % (11.7-14.2); RDW Standard Deviation 70.4 fL (35.1-46.3); Red Blood Cell Count 3.98 M/mm3 (4.30-5.90); White Blood Cell Count 7.55 K/mm3 (4.00-11.30)
[2024-07-13 05:26] LABS: Albumin, Blood 1.6 g/dL (3.4-5.0); Albumin/Globulin Ratio 0.4 (0.8-1.8); Bilirubin, Total 0.3 mg/dL (0.1-1.0); Bun/Creatinine Ratio 109.2 (12.0-20.0); Calcium, Blood 7.9 mg/dL (8.5-10.1); Creatinine, Blood 0.24 mg/dL (0.60-1.20); Magnesium, Blood 2.2 mg/dL (1.6-2.4); Phosphorus, Blood 2.6 mg/dL (2.5-4.9); Potassium, Blood 3.8 mmol/L (3.5-5.5); Total Protein, Blood 5.6 g/dL (6.4-8.2)
--- NOTE | 2024-07-13 05:52 | NUR ---
SHIFT SUMMARY: NO OVERNIGHT EVENTS. PT SLEPT MOST OF THE NIGHT. ISSUES WITH PAIN AND ANXIETY OVERALL, BUT MANAGED WITH REPOSITIONS AND MEDICATION. GOAL TO CONTINUE TO WORK ON COPING SKILLS AND TRANSITION PT FROM NEED FOR SUCH FREQUENT IV PAIN AND ANXIETY MEDICATION. PTS BREATHING WNL, HE HAS A PRODUCTIVE COUGH AND IS USING SUCTION NEEDED. VITALS REMAINED STABLE AND WNL THROUGHOUT NIGHT. CHEST TUBE AND ET TUBE OUT DURING DAY SHIFT 07/12. VELASCO CATHETER OUT DURING THIS SHIFT.
[2024-07-13] MEDS ORDERED: OxyCODONE HCL 5 MG TAB PO PRN (07:45)
[2024-07-14] VITALS (20 sets, daily range): BP systolic 85–126; BP diastolic 57–83
[2024-07-14 03:32] LABS: BASOPHILS ABSOLUTE AUTO 0.02 K/mm3 (0.00-0.23); BASOPHILS PERCENT AUTO 0 % (0-2); EOSINOPHILS ABSOLUTE AUTO 0.01 K/mm3 (0.00-0.68); EOSINOPHILS PERCENT AUTO 0 % (0-6); Hematocrit 31.5 % (37.0-53.0); Hemoglobin 10.1 g/dL (13.5-17.5); IMMATURE GRAN ABSOLUTE AUTO 0.03 K/mm3 (0.00-0.10); IMMATURE GRAN PERCENT AUTO 0 % (0-1); LYMPHOCYTES ABSOLUTE AUTO 1.31 K/mm3 (0.84-5.20); LYMPHOCYTES PERCENT AUTO 13 % (21-46); MONOCYTES ABSOLUTE AUTO 0.67 K/mm3 (0.16-1.47); MONOCYTES PERCENT AUTO 7 % (4-13); Mean Corpuscular HGB 25.4 pg (26.0-34.0); Mean Corpuscular HGB Conc 32.1 g/dL (31.5-36.5); Mean Corpuscular Volume 79 fL (80-100); Mean Platelet Volume 8.6 fL (9.1-12.4); NEUTROPHILS ABSOLUTE AUTO 7.88 K/mm3 (1.96-9.15); NEUTROPHILS PERCENT AUTO 79 % (41-73); Platelet Count 260 K/mm3 (150-400); RDW Coefficient Variation 25.1 % (11.7-14.2); RDW Standard Deviation 69.7 fL (35.1-46.3); Red Blood Cell Count 3.97 M/mm3 (4.30-5.90); White Blood Cell Count 9.92 K/mm3 (4.00-11.30)
[2024-07-14 03:53] LABS: Albumin, Blood 1.6 g/dL (3.4-5.0); Albumin/Globulin Ratio 0.4 (0.8-1.8); Bilirubin, Total 0.3 mg/dL (0.1-1.0); Bun/Creatinine Ratio 123.2 (12.0-20.0); Calcium, Blood 8.1 mg/dL (8.5-10.1); Creatinine, Blood 0.21 mg/dL (0.60-1.20); Globulin, Blood 4.1 g/dL (2.2-4.0); Magnesium, Blood 1.9 mg/dL (1.6-2.4); Phosphorus, Blood 2.2 mg/dL (2.5-4.9); Potassium, Blood 3.8 mmol/L (3.5-5.5); Total Protein, Blood 5.7 g/dL (6.4-8.2)
--- NOTE | 2024-07-14 05:20 | NUR ---
A/OX4, RESPONDS AND CALLS APPROPRIATLY. HE IS ON 2L NC, DENIES SOB EXCEPT WITH ACTIVITY, SATS > 95%. VSS. CONDOM CATH CHANGED, GOOD UOP NOTED. NO BM THIS SHIFT. PAIN HAS BEEN WELL MANAGED WITH OXYCODONE PRN. PRECEDEX REMAINED OFF THIS SHIFT. TF INFUSING AT GOAL. PHOS REPLACEMENT ORDERED R/T LOW VALUES ON AM LABS. NO ACUTE EVENTS. CALL LIGHT IN REACH.
[2024-07-14] MEDS ORDERED: Potassium Phosphate Dibasic 20 MM in Dextrose 5% 500 ML IV ONE (05:30)
[2024-07-14] MEDS ORDERED: Mag Sulfate 1 GM/D5% 100ML 100 ML IV STA (07:05)
--- NOTE | 2024-07-14 08:28 | NUR ---
START OF SHIFT THIS NURSE ASSUMED CARE AT APPROXIMATELY 0700. PT IS RESTING IN BED COMFORTABLY COMPLAINING OF BACK PAIN 10/07 THAT IS TREATED WITH MEDS ON EMAR. PT STATED A DESIRE TO DECREASE AND EVENTUALLY STOPPING ALL PAIN MEDS TO HELP HIS ADDICTION. THIS NURSE EDUCATED PT ON FLUTTER VALVE AND IS. PT COOPERATIVE. WILL CONTINUE WITH THE PLAN OF CARE.
--- NOTE | 2024-07-14 11:17 | NUR ---
THIS RN ASSUMED CARE OF PT AT 1000. PT IS ALERT AND ORIENTED AND FOLLOWS COMMANDS AND CALLS APPROPRIATELY. PT HEART RATE IN THE 90s, BLOOD PRESSURE STABLE AT 99/62 MAP OF 73, PT DENIES CHEST PAIN UPON ASSESSMENT. PT IS ON 2L NC AND SATTING >92%, PT DENIES SHORTNESS OF BREATH. PT HAS A CONDOM CATHETER THAT DRAINING TO GRAVITY. TUBE FEEDS ARE RUNNING THROUGH A DOBHOFF THAT IS AT GOAL. PT IS NOW UP AND IN THE CHAIR, PT WAS WORKING WITH PT THIS AM. GOING TO TRY AND GET PT OFF OF FENTYL AND ON OXY PER FEEDING TUBE. NO OTHER INTERVENTIONS AT THIS TIME. PLAN OF CARE CONTINUED.
--- NOTE | 2024-07-14 14:11 | NUR ---
PT BEING TRANSFERED TO [place] [id number], PT BROTHER YARON HAS BEEN UPDATED AND REPORT HAS BEEN CALLED. NO OTHER INTERVENTIONS AT THIS TIME. PLAN OF CARE CONTINUED.
--- NOTE | 2024-07-14 17:15 | NUR ---
PT SUMMARY PT IS ALERT AND ORIENTED X4, FOLLOWS COMMANDS AND EATING VERY WELL. NO ACUTE CHANGED THROUGHOUT THE DAY, PT HAD DIETARY COME AND TALK WITH PT BECAUSE PT WAS HAVING A LOT OF OUTPUT FROM COLOSTOMY BAG AND SUGARS STILL REMAIN NORMAL BUT ON THE LOWER SIDE, HAS BEEN NOTIFIED. NO OTHER INTERVENTIONS AT THIS TIME. PLAN OF CARE CONTINUED.
[2024-07-14] MEDS ORDERED: Ipratropium/Albuterol SulF 2.5-0.5MG/3 ML Amp INH SCH (17:25)
[2024-07-15] VITALS (11 sets, daily range): BP systolic 68–114; BP diastolic 55–72
[2024-07-15 04:31] LABS: Hematocrit 32.2 % (37.0-53.0); Hemoglobin 10.1 g/dL (13.5-17.5); Mean Corpuscular HGB Conc 31.4 g/dL (31.5-36.5); Mean Corpuscular Volume 80 fL (80-100); Mean Platelet Volume 8.8 fL (9.1-12.4); Platelet Count 270 K/mm3 (150-400); RDW Coefficient Variation 25.2 % (11.7-14.2); RDW Standard Deviation 69.9 fL (35.1-46.3); Red Blood Cell Count 4.04 M/mm3 (4.30-5.90)
[2024-07-15 04:48] LABS: Albumin, Blood 1.8 g/dL (3.4-5.0); Albumin/Globulin Ratio 0.4 (0.8-1.8); Bilirubin, Total 0.3 mg/dL (0.1-1.0); Bun/Creatinine Ratio 93.3 (12.0-20.0); Calcium, Blood 8.1 mg/dL (8.5-10.1); Creatinine, Blood 0.27 mg/dL (0.60-1.20); Globulin, Blood 4.2 g/dL (2.2-4.0); Magnesium, Blood 2.2 mg/dL (1.6-2.4); Phosphorus, Blood 2.6 mg/dL (2.5-4.9); Potassium, Blood 3.8 mmol/L (3.5-5.5)
--- NOTE | 2024-07-15 05:34 | NUR ---
SHIFT SUMMARY PT A/OX4, RESPONDS APPROPRIATLY. USES CALL LIGHT. VSS ON 3L NC. HE DESATTED TO 87 ON ROOM AIR. PT HAD UNEVENTFUL NIGHT. STAYED IN RECLINER ALL NIGHT, WAS ABLE TO SLEEP FOR A COUPLE HOURS. HIS PAIN WAS MANAGED PER EMAR WITH RELIEF. HE HAD GOOD UOP THIS SHIFT. TF STILL RUNNING AT GOAL. AM LABS REFLECTED NOTHING NEEDING REPLACEMENT. CALL LIGHT IN REACH.
--- NOTE | 2024-07-15 07:26 | NUR ---
THIS RN ASSUMED CARE OF PT AT 0700. PT IS ALERT AND ORIENTED X4, CALLS APPROPRIATELY AND FOLLOWS DIRECTIONS WELL. PT HEART RATE IN THE 90s, BLOOD PRESSURE STABLE AT 104/68 MAP OF 80, PT DENIES CHEST PAIN UPON ASSESSMENT. PT IS ON 2L NC SATTING >92%, PT DENIES SHORTNESS OF BREATH. PT HAS A CONDOM CATHETER ON DRAINING TO GRAVITY. PT ALSO HAS A DOBHOFF THAT HAS TUBE FEEDS RUNNING AT GOAL. PAIN IS BEING TREATED PER EMAR. NO OTHER INTERVENTIONS AT THIS TIME. PLAN OF CARE CONTINUED.
[2024-07-15] MEDS ORDERED: Cholecalciferol 1000 Unit Tablet (=25MCG) PT SCH (09:00)
--- NOTE | 2024-07-15 18:19 | NUR ---
PT SUMMARY NO NEW ACUTE EVENTS TO REPORT THROUGHOUT THE DAY. PT DID NOT PASS BARIUM SWALLOW STUDY, SPEECH RECOMMENDED A PEG TUBE. PT WAS ABLE TO STAND AND WORK WITH PT AND OT TODAY. DIETARY ASKED ME TO INCREASE TUBE FEEDS TO 40 ML/HR. PT FEELING BETTER, NO OTHER INTERVENTIONS AT THIS TIME. PLAN OF CARE CONTINUED.
[2024-07-16] VITALS (20 sets, daily range): BP systolic 88–115; BP diastolic 47–76
--- NOTE | 2024-07-16 05:52 | NUR ---
SHIFT SUMMARY PT HAD UNEVENTFUL NIGHT. REMAINED ON 3L NC, VSS. HE SLEPT A FEW HOURS IN CHAIR BUT WAS UP MOST OF THE NIGHT. PAIN WAS MANAGED WELL WITH MEDS AND REPOSITIONING. NO CHANGES TO CARE. GOOD UOP. CALL LIGHT IN REACH.
--- NOTE | 2024-07-16 12:12 | NUR ---
Spiritual Care Visit. Pt. is sitting up in a chair and welcomed my visit. Facilitated and introduction and a short update on the pts. progress. Pt. verbalized the significance of scripture that was shared by Spice Blenderpaxton Pike on a previous visit. Pt. requested this escrow clerk to help him move. Shared that I would get a nurse as soon as we prayed. Prayed for the Pt. Pt. verbalized gratitude for the spiritual care visit. Informed PT Joseluis about the Pts. request.
--- NOTE | 2024-07-16 17:16 | NUR ---
SHIFT SUMMARY PT A/OX4 AND COOPERATIVE OF CARE. PT ABLE TO EXPRESS NEEDS AND USES CALL LIGHT. PT UP IN RECLINER FOR ENTIRE SHIFT AND REQUESTED BOOSTS WHEN NEEDED. PT ABLE TO TURN SELF IN RECLINER. PT BPS SOFT WITH STABLE MAP. OTHER VSS THROUGHOUT SHIFT WITH O2 SATS IN THE 90'S ON 1L NC. PT ABLE TO WORK WITH PT/OT, SEE THERAPIST NOTES. PT RECIEVED CPT THERAPY DURING SHIFT, TOLERATED WELL. TUBE FEED CONTINUED AT GOAL RATE, PT TOLERATING WELL. ORDERED PICC LINE TO REMAIN AT THIS TIME, NURSE NOTIFY ORDER PLACED. PT MADE MEDICAL STATUS WITH NO TELE. PT REMAINS STRICT NPO.
[2024-07-16] MEDS ORDERED: Melatonin 5 MG Tablet PO SCH (21:00)
--- NOTE | 2024-07-16 21:16 | NUR ---
ASSUMPTION OF CARE ASSUMED CARE OF PATIENT AT APPROXIMATELY 1900, BEDSIDE SHIFT REPORT RECEIVED FROM KE RN. PT RESTING IN RECLINER, ALERT AND ORIENTED X4. PT ANSWERS QUESTIONS APPROPRIATLEY, FOLLOWS DIRECTION WHEN PROMPTED AND IS ABLE TO MAKE HIS NEEDS KNOWN. PT WEAK, MOVES EXTREMITIES EQUALLY BILATERALLY. PT USES CALL LIGHT FOR NEEDS. PT MEDICATED PER EMAR FOR PAIN. RIGHT PUPIL IS LARGER THAN THE LEFT, RIGHT EYE RED WITH YELLOW DRAINAGE. DR. PALOMINO NOTIFIED OF IRREGUALR PUPILS, PLAN TO MONITOR AT THIS TIME. PT MEDICAL FLOOR STATUS, NO TELEMETRY. HR 90-100'S, SBP 80-90'S. PT PLACED ON 2LPM VIA NC DURING ASSESSMENT, OXYGEN SATURATION >92% ON OXYGEN. ABDOMEN SOFT, BOWEL TONES HYPOACTIVE. DOBHOFF IN PLACE WITH PIVOT 1.5 INFUSING AT GOAL RATE OF 40MLS/HR WITH 50ML Q4H WATER FLUSH. PT USES URINAL TO VOID. PICC LINE IN PLACE TO BRAD SL. CALL LIGHT WITHIN REACH, CARE CONTINUES.
[2024-07-17 00:29] VITALS: BP 114/100
[2024-07-17 03:31] VITALS: BP 108/64
[2024-07-17 03:45] LABS: Hematocrit 28.5 % (37.0-53.0); Hemoglobin 9.2 g/dL (13.5-17.5); Mean Corpuscular HGB 26.1 pg (26.0-34.0); Mean Corpuscular HGB Conc 32.3 g/dL (31.5-36.5); Mean Corpuscular Volume 81 fL (80-100); Mean Platelet Volume 8.7 fL (9.1-12.4); Platelet Count 268 K/mm3 (150-400); RDW Coefficient Variation 25.2 % (11.7-14.2); RDW Standard Deviation 71.9 fL (35.1-46.3); Red Blood Cell Count 3.52 M/mm3 (4.30-5.90); White Blood Cell Count 10.84 K/mm3 (4.00-11.30)
[2024-07-17 04:00] VITALS: BP 102/60
[2024-07-17 04:00] LABS: Albumin, Blood 1.8 g/dL (3.4-5.0); Anion Gap 4 mmol/L (3-11); Blood Urea Nitrogen 30 mg/dL (8-24); Bun/Creatinine Ratio 140.2 (12.0-20.0); CO2, Blood 31 mmol/L (21-32); Calcium, Blood 8.2 mg/dL (8.5-10.1); Chloride, Blood 107 mmol/L (98-108); Creatinine, Blood 0.21 mg/dL (0.60-1.20); Glomerular Filtration Rate 170 (60-); Glucose, Blood 92 mg/dL (70-99); Magnesium, Blood 2.2 mg/dL (1.6-2.4); Phosphorus, Blood 2.9 mg/dL (2.5-4.9); Potassium, Blood 3.8 mmol/L (3.5-5.5); Sodium, Blood 138 mmol/L (136-145)
--- NOTE | 2024-07-17 05:44 | NUR ---
SHIFT SUMMARY NO ACUTE CHANGES THIS SHIFT. PT RESTING IN BED, AMBULATED WITH 2 PERSON ASSIST AND FWW FROM RECLINER TO BED THIS SHIFT. PT VERY WEAK. PT ALERT AND ORIENTED X4, ANSWERS QUESTIONS APPROPRIATELY, FOLLOWS DIRECTION WHEN PROMPTED AND IS ABLE TO MAKE HIS NEEDS KNOWN. PT MOVES EXTREMITIES EQUALLY BILATERALLY, USES CALL LIGHT FOR NEEDS. HR 70-100'S SINUS MAP >65. PT ON 2LPM VIA NC, OXYGEN SATURATION >92%. ABDOMON SOFT, TENDER ON PALPATION, DOBHOFF IN PLACE WITH PIVOT 1.5 INFUSING AT GOAL RATE OF 40MLS/HR WITH 50ML Q4H WATER FLUSH. PT USES URINAL TO VOID. PICC LINE IN PLACE TO [facility]. BED IN LOWEST POSITION, CALL LIGHT WITHIN REACH, CARE CONTINUES.
[2024-07-17 09:00] VITALS: BP 101/66
[2024-07-17] MEDS ORDERED: Lisinopril 5 MG Tab PT SCH (13:00)
--- NOTE | 2024-07-17 17:23 | NUR ---
Spiritual Care Visit. At the request of the Pts. attending nurse, I visited the Pt. Pt. is pleasant and welcoming. Facilitated some life review. Pt. verbalized that his dad from [place]'s disease when the pt. was 26. Listen with empathy and a calming presence. Pt. displayed evidence of being lonely and a lengthy visit continued as we considered matters of cheyenne and belief. Pt. displayed great interest and shared about his mom and brother who he lives with in [place], [place]. Pt. verbalized his desire to get well. Prayed with the Pt. After prayer we had a lengthy discussion about the CURTIS. The pt. verbalized gratitude for the spiritual care visit.
--- NOTE | 2024-07-17 17:26 | NUR ---
Shift Summary Pt alert, oriented x4; calm and cooperative with care. Engaging with staff. Able to make meeds knowns. Wokred with PT/OT. Lift used for up in chair, in recliner for majoirty of shift. Pt reporting back/side pain t/o shift, medicated per orders. Pt denies chest pain/pressure, sob, nasuea, dizziness and numb/tingling. Tele this am sinus, order for no tele, bp stable. Spo2 >90% on 2l for majority of shift, titrated down to ra this evening. Abd soft nontender, +bt; tube feeding goal rate increased to 50ml/hr, increased on pump. Other vss. No other acute changes noted. Will continue to monitor.
[2024-07-17 20:00] VITALS: BP 113/70
--- NOTE | 2024-07-17 20:45 | NUR ---
ASSUMPTION OF CARE CARE OF THIS PT ASSUMED AFTER BEDSIDE REPORT FROM DAY RN. PT LYING IN BED IN NO APPARENT DISTRESS. AFEBRILE. CACHECTIC. PT IN PAIN 7/10 IN BACK AND SHOULDERS. HR 80. BP STABLE. SATURATION >92% ON RA. LUNGS COARSE. WEAK COUGH- NON PRODUCTIVE. NO CHEST PAIN/PRESSURE, SOB, AB PAIN, N/V. DOBHOFF IN PLACE WITH TUBE FEEDS AT 50ML/HR WHICH IS GOAL. PT HAS CALL LIGHT.
[2024-07-17] MEDS ORDERED: Famotidine 20 MG Tab PT SCH (21:00)
[2024-07-17 22:48] VITALS: BP 104/57
--- NOTE | 2024-07-18 02:00 | NUR ---
UPDATE: NEW DOBHOFF REINSERTION AND XRAY XRAY FOR NEW DOBHOFF INSERTED TONIGHT DUE TO PREVIOUS ONE SLIPPING OUT TOO FAR DID NO SHOW END OF TUBE, THOUGH THE TUBE CAN CLEARLY BE SEEN GOING INTO THE STOMACH. THE PROVIDER WAS CALLED AND PERMISSION WAS GIVEN TO START MEDS AND TUBE FEEDS. NO ISSUES WERE SEEN BYTHE END OF SHIFT
[2024-07-18] MEDS ORDERED: Melatonin 5 MG Tablet PT ONE (03:30)
[2024-07-18 05:59] VITALS: BP 106/63
[2024-07-18 06:47] LABS: Magnesium, Blood 1.9 mg/dL (1.6-2.4); Phosphorus, Blood 3.1 mg/dL (2.5-4.9)
[2024-07-18 07:25] VITALS: BP 106/66
--- NOTE | 2024-07-18 07:26 | NUR ---
ASSUMED CARE OF PATIENT AT APPROXIMATELY 0700. REPORT RECEIVED FROM BISHNU ORANTES. PT AWAKE IN BED RECEIVING BREATHING TX FROM RT, INTERACTING c STAFF APPROPRIATELY DURING BEDSIDE REPORT. MED NO TELE STATUS. REPORTS PAIN OF 9/10 IN BACK AND R SIDE. ON RA, BREATHING UNLABORED. SEE SHIFT ASSESSMENT FOR FULL DETAILS.
--- NOTE | 2024-07-18 07:56 | NUR ---
SHIFT SUMMARY PT LYING IN BED FOLLOWING BED CHANGE DUE TO INCONTINENT URINE. PT ALERT AND ORIENTED, CAN MOVE ALL EXTREMITIES BUT IS UNMOTIVATED TO DO SO OFTEN. A FEBRILE. NEUROVASCULARLY INTACT ALL SHIFT. HR 80'S WITH STABLE BP WHEN CHECKED. RA PRODUCED EXCELLENT SATURATIONS. LUNGS SOUND COARSE IN PLACES. NO CHEST PAIN/PRESSURE, SOB, AB PAIN, N/V ALL SHIFT. PT DID COMPLAIN OFTEN OF SHOULDER/BACK PAIN THAT REQUIRED FREQUENT USE OF PRN PAIN MEDS. PT HAS CALL LIGHT HANDY.
[2024-07-18] MEDS ORDERED: Enoxaparin 40 MG/0.4 ML SYR SC SCH (09:00)
[2024-07-18] MEDS ORDERED: Empagliflozin 10 MG TAB XX SCH (09:00)
--- NOTE | 2024-07-18 09:45 | NUR ---
PT TRANSFERRED TO MEDICAL FLOOR ROOM 302, ESCORTED BY LIZZETTE GIMENEZ.
--- NOTE | 2024-07-18 11:29 | NUR ---
Spiritual Care Visit. Pt. is awake in bed and welcomes my visit. Facilitated a conversation regarding the Pts. expectations after discharge from this hospital. Pt. verbalized an expectation that the next step [place]. Pt. verbalized clearly that he intends to do what he can to get stronger and to avoid a feeding tube. Prayed with the Pt. The Pt. requested a bible and a notepad. This assembler type bar and segment gave the Pt. a NT/Psalms and is seeking a small notepad for the Pt.
[2024-07-18] MEDS ORDERED: QUEtiapine Fumarate 50 MG TAB PT PRN (12:40)
[2024-07-18 13:24] LABS: Hematocrit 30.6 % (37.0-53.0); Hemoglobin 9.4 g/dL (13.5-17.5); Mean Corpuscular HGB 25.1 pg (26.0-34.0); Mean Corpuscular HGB Conc 30.7 g/dL (31.5-36.5); Mean Corpuscular Volume 82 fL (80-100); Platelet Count 343 K/mm3 (150-400); RDW Coefficient Variation 24.4 % (11.7-14.2); RDW Standard Deviation 71.2 fL (35.1-46.3); Red Blood Cell Count 3.74 M/mm3 (4.30-5.90); White Blood Cell Count 7.95 K/mm3 (4.00-11.30)
[2024-07-18 13:27] LABS: Albumin, Blood 1.8 g/dL (3.4-5.0); Anion Gap 6 mmol/L (3-11); Blood Urea Nitrogen 27 mg/dL (8-24); Bun/Creatinine Ratio 75.2 (12.0-20.0); CO2, Blood 30 mmol/L (21-32); Calcium, Blood 8.5 mg/dL (8.5-10.1); Chloride, Blood 104 mmol/L (98-108); Creatinine, Blood 0.36 mg/dL (0.60-1.20); Glomerular Filtration Rate 144 (60-); Glucose, Blood 94 mg/dL (70-99); Magnesium, Blood 1.8 mg/dL (1.6-2.4); Phosphorus, Blood 3.2 mg/dL (2.5-4.9); Sodium, Blood 136 mmol/L (136-145)
[2024-07-18 16:05] VITALS: BP 104/64
[2024-07-18] MEDS ORDERED: Carvedilol 3.125 MG Tab PT SCH (17:00)
--- NOTE | 2024-07-18 18:04 | NUR ---
TRANSFER NOTE/SHIFT SUMMARY PATIENT A/OX4, PLEASANT AND COOPERATIVE WITH CARE. PATIENT TRANSFERRED FROM ICU THIS MORNING TO ROOM 302. HAS BEEN SEEN BY PT/OT/ST THIS SHIFT. 1 PERSON ASSIST TO RECLINER AND WHEELCHAIR. TUBE FEEDING THROUGH NG TUBE AT GOAL AT 50ML/HR WITH 50 ML FLUSH Q4H. PATIENT TOLERATING WELL. PATIENT WITH NO BOWEL MOVEMENT X5 DAYS PER BASE WAD OPERATOR ADJUSTER. PRN BOWEL MEDS ADMINISTERED. PATIENT COMPLAINING OF LOWER BACK PAIN, MEDICATED PER MAR WITH OXYCODONE AND FENTANYL. CONTINUES Q6 CBG. PICC LINE TO RIGHT UPPER ARM DRESSING CHANGED IN ICU PRIOR TO TRANSFER. QUALITY CONTROL HEAD CAME TO BEDSIDE THIS SHIFT. NO OTHER CONCERNS AT THIS TIME.
[2024-07-18 20:17] VITALS: BP 101/64
[2024-07-19 02:59] VITALS: BP 91/53
--- NOTE | 2024-07-19 05:30 | NUR ---
SHIFT SUMMARY PT SLEPT INTERMITTENTLY DURING THE NIGHT. REPOSITIONED Q2 HOURS. ENCOURAGED PT TO PARTICIPATE AND HELP WITH POSITION CHANGES. BONY PROMINENCES RED/ BLANCHABLE. TUBE FEED CONTINUOUS AT 50ML/HR WITH WATER 50ML Q 4HRS- PT TOLERATING WELL. HOB MAINTAINED AT 30 DEGREES. MEDICATED FOR PAIN PER EMAR. BED IN LOWEST POSITION, CALL LIGHT WITHIN REACH, SIDERAILS UP X2.
[2024-07-19 07:46] VITALS: BP 101/60
[2024-07-19] MEDS ORDERED: Lactulose 20 GM/30 ML UDC PT ONE (12:00)
[2024-07-19 12:37] VITALS: BP 102/64
[2024-07-19] MEDS ORDERED: HYDROmorphone HCl 2 MG Tab PT PRN (15:05)
[2024-07-19 15:57] VITALS: BP 96/67
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
--- NOTE | 2024-07-19 18:14 | NUR ---
SHIFT SUMMARY PATIENT A/OX4, ABLE TO MAKE NEEDS KNOWN. PLEASANT AND COOPERATIVE WITH CARE. 1 PERSON ASSIST. ABLE TO TRANSFER TO RECLINER TODAY. PAIN MANAGEMENT DISCUSSED WITH PALLIATIVE CARE AND DR. TRINIDAD. FENTANYL AND ROXICODONE DISCONTINUED TODAY AND NEW ORDER RECIEVED FOR DILAUDID. ADMINISTERED PER MAR, PATIENT STATES AFFECTIVE AT THIS TIME. PATIENT STILL WITH NO BOWEL MOVEMENT, MD AWARE AND NEW BOWEL REGIMEN STARTED, SEE MAR. Q6 CBG DISCONTINUED, CBG REMAIN WNL. TUBE FEEDING RUNNING PER ORDER, TUBING AND FEED CHANGED THIS MORNING. PATIENT COMPLAINING OF "DRIBBLING" AFTER URINATING, PATIENT BLADDER SCANNED ADN >200ML FOUND POST VOID. WILL CONTINUE TO MONITOR. PATIENT WITH FRIENDS AT BEDSIDE THIS AFTERNOON. NO OTHER CONCERNS AT THIS TIME.
[2024-07-19 19:09] VITALS: BP 94/57
[2024-07-19] MEDS ORDERED: Docusate Sodium Liquid 100 MG UDC PT SCH (21:00)
[2024-07-20 03:35] VITALS: BP 90/56
--- NOTE | 2024-07-20 05:59 | NUR ---
SHIFT SUMMARY PT SLEPT INTERMITTENTLY DURING THE NIGHT. MEDICATED FOR PAIN WITH DILAUDID PER EMAR. PT REPOSITIONED Q2 HRS. MEPELEX PLACED TO SPINE, SACRUM, AND LEFT SHOULDER FOR RED BONY PROMINENCES. MOISTURIZING LOTION APPLIED TO SCALY/SCABBED LE'S. PT NEEDS MUCH ENCOURAGEMENT TO PARTICIPATE IN POSITION CHANGES, REACHING FOR ITEMS ON HIS NEARBY TABLE, AND ADJUSTING COVERS. TUBE FEED INFUSING WITHOUT DIFFICULTY. BED IN LOWEST POSITION, HOB UP 30 DEGREES, CALL LIGHT WITHIN REACH, SIDERAILS UP X2.
[2024-07-20 07:09] VITALS: BP 86/53
[2024-07-20 08:11] VITALS: BP 98/55
[2024-07-20] MEDS ORDERED: HYDROmorphone HCl 2 MG Tab PT PRN (12:00)
[2024-07-20 16:57] VITALS: BP 95/69
--- NOTE | 2024-07-20 18:18 | NUR ---
SHIFT SUMMARY PATIENT A/OX4, ABLE TO MAKE NEEDS KNOWN. PLEASANT AND COOPERATIVE, QUIET AT TIMES. PATIENT WAS ABLE TO HAVE A SHOWER THIS AFTERNOON. TUBE FEED RUNNING PER ORDERS, TOLERATING WELL. DILAUDID DECREASED TO 2MG Q4H, PATIENT TOLERATING WELL. CONTINUES WITH Q2H REPOSITIONING. MEPILEX PLACED TO SACRUM AND SPINE AFTER SHOWER WELL LEFT SHOULDER. BLANCHABLE REDNESS. NO OTHER CONCERNS AT THIS TIME.
[2024-07-20 19:03] VITALS: BP 97/59
[2024-07-21 02:48] VITALS: BP 88/60
--- NOTE | 2024-07-21 05:50 | NUR ---
SHIFT SUMMARY PT SLEPT INTERMITTENTLY THROUGH THE NIGHT. MEDICATED FOR PAIN PER EMAR. TUBE FEEDING CONTINUES PER ORDER AT GOAL RATE. BOWEL CARE GIVEN, NO BM YET. MEPELEXES INTACT TO SPINE, SACRUM AND LEFT SHOULDER. MOISTURIZING LOTION APPLIED TO SCALY/SCABBED AREAS ON PRABHJOT. LE'S. PT REPOSITIONED Q 2HR OR MORE FREQUENTLY PER PT. HOB MAINTAINED AT 30 DEGREES FOR TF. PT CONTINUES TO NEED ENCOURAGEMENT TO PARTICIPATE IN HIS CARE. BED IN LOWEST POSITION, CALL LIGHT WITHIN REACH, SIDERAILS UP X2.
[2024-07-21 07:15] VITALS: BP 88/50
[2024-07-21] MEDS ORDERED: HYDROmorphone HCl 2 MG Tab PT PRN (11:55)
[2024-07-21 13:08] LABS: Percent Saturation 25.8 % (20.0-50.0)
--- NOTE | 2024-07-21 13:46 | NUR ---
UPDATED PATIENTS MOTHER ON PLAN OF CARE WITH PATIENTS PERMISSION.
[2024-07-21 15:35] VITALS: BP 98/67
[2024-07-21 20:20] VITALS: BP 99/64
[2024-07-21 21:27] LABS: TISSUE TRANSGLUTAMINAS TTG,IGA 2.21 FLU (0.00-4.99)
[2024-07-22 03:00] VITALS: BP 91/56
--- NOTE | 2024-07-22 06:05 | NUR ---
SHIFT SUMMARY PATIENT HAS BEEN SLEEPING INTERMITTANTLY THROUGHOUT THE NIGHT. FEEDING TUBE IS INFUSING WITHOUT COMPLICATIONS. PATIENT HAS REQUESTED HIS PRN DILAUDID X2 DURING THE NIGHT. PATIENT IS ORIENTED X4. HE HAS HIS CALL LIGHT WITHIN REACH AND BED ALARM IS SET. SAFETY PRECAUTIONS ARE BEING MAINTAINED.
[2024-07-22 07:24] VITALS: BP 95/55
[2024-07-22] MEDS ORDERED: Buprenorphine HCL/Naloxone HCL 2-0.5MG 1 EA SL ONE ×2 (10:05→12:50)
[2024-07-22 10:18] VITALS: BP 90/58
[2024-07-22] MEDS ORDERED: HYDROmorphone HCl 2 MG Tab PT SCH (12:00)
[2024-07-22 15:57] VITALS: BP 94/57
[2024-07-22 19:51] VITALS: BP 96/53
[2024-07-23 03:32] VITALS: BP 89/53
[2024-07-23 05:22] LABS: Calcium, Blood 8.4 mg/dL (8.5-10.1); Creatinine, Blood 0.26 mg/dL (0.60-1.20); Phosphorus, Blood 4.1 mg/dL (2.5-4.9)
--- NOTE | 2024-07-23 05:33 | NUR ---
PT A&O X4, VS WNL. PT UP WITH X2 ASSIST HIS LEGS ARE NOT STRONG ENOUGH TO HOLD UP HIS WEIGHT FOR LONG PERIODS. PT HAD PAIN IN ALL JOINTS, SHOULDER, BACK, HIP'S WHEN LEFT TO LONG LIEING IN SAME POSITION. PT WITH TF OF JEVITY 1.2 AT 70 MLS/HR. PT RECIEVES SCHEDULED PAIN MEDS WITH TAPERING OFF DILAUDID, AND TAPERING UP SUBOXONE. RT EYE WITH INFECTION AND STILL ON ABX EYE DROPS. PICC LINE USED TO DRAW LABS THIS AM, 3 LUMENS ALL FLUSH WITHOUT ISSUE. PT DOES BECOME CONFUSED IN NIGHT AT TIMES, BUT REORIENTS WELL. PT HAS MEPILEX'S ON SHOULDER'S, AND SPINE, AND COCCYX FOR PREVENTION. CONTINENT OF B&B.
[2024-07-23 08:29] VITALS: BP 91/54
[2024-07-23] MEDS ORDERED: Buprenorphine HCL/Naloxone HCL 2-0.5MG 1 EA SL SCH (09:00)
--- NOTE | 2024-07-23 14:32 | NUR ---
Spiritual Care Visit. Pt. is awake and sitting in a chair when he welcomes my visit. Pt. is pleasant. Pt. verbalized the progress he has made with his PT. A great lengthy discussion about the CURTIS was had as it has been a notied interets of the Pt. Pt. displayed evidence of engagement and motivation. Prayed with Pt. and provided the Pt. with a pair of reading glasses.
[2024-07-23 17:20] VITALS: BP 92/58
[2024-07-23 19:34] VITALS: BP 95/57
[2024-07-24 03:58] VITALS: BP 104/52
--- NOTE | 2024-07-24 06:39 | NUR ---
SHIFT SUMMARY PT HAS BEEN RESTING IN BED OVERNIGHT. HE HAS BEEN AOX4, CALM AND COOPERATIVE. HE HAS HAD A FLAT AFFECT. PT HAS A DOBHOFF TUBE CONNECTED TO TUBE FEEDING. PT HAS TOLERATED TUBE FEEDING. PT HAS BEEN ON BEDREST, WITH SEVERE WEAKNESS. HE HAS BEEN TURNED EVERY 2 HRS. PT ONLY COMPLAINT HAS BEEN BACK PAIN. NO ACUTE EVENTS OVERNIGHT.
[2024-07-24 07:29] VITALS: BP 102/65
[2024-07-24] MEDS ORDERED: Buprenorphine HCL/Naloxone HCL 2-0.5MG 1 EA SL SCH ×2 (09:00→21:00)
[2024-07-24] MEDS ORDERED: HYDROmorphone HCl 2 MG Tab PO SCH (12:00)
[2024-07-24 14:54] VITALS: BP 88/47
[2024-07-24 15:08] VITALS: BP 93/64
--- NOTE | 2024-07-24 19:30 | NUR ---
SHIFT SUMMARY PT IS A/OX4. 1 PERSON ASSIST WITH FWW. NO ACUTE CHANGES THROUGHOUT THIS SHIFT. CONTINUOUS FEEDINGS @ 70 ML/HR WITH 100 ML FLUSH Q4. EXPECTED BARIUM SWALLOW STUDY FOR TOMORROW. PT REPORTS BACK PAIN, DILUADID GIVEN PER JUN. PT CALLS APPROPRIATELY USING THE CALL LIGHT.
[2024-07-24 19:34] VITALS: BP 90/64
[2024-07-24] MEDS ORDERED: Buprenorphine HCL/Naloxone HCL 8MG-2MG Tab SL SCH (21:00)
[2024-07-25] MEDS ORDERED: Methyl Salicylate/Menth/Camph 57 GM TUBE TOP PRN (00:35)
[2024-07-25] MEDS ORDERED: Acetaminophen 325 MG TABLET PO PRN (00:35)
[2024-07-25 02:13] VITALS: BP 86/53
[2024-07-25] MEDS ORDERED: NS 250 ML IV ONE (03:10)
--- NOTE | 2024-07-25 04:41 | NUR ---
IDEA WORKER SUMMARY W/HOSPITALIST CONTACT PT A/OX4 WITH FORGETFULNESS AT TIMES. PT IS ABLE TO MAKE NEEDS KNOWN AND USES CALL LIGHT TO CONTACT STAFF. PT ON CONTINUOUS TUBE FEED AT 70MLS HOUR THRU DOBHOFF NG TUBE. PT HAVING LOW BLOOD PRESSURES--CALL TO HOSPITALIST. PRESSURES HAVE BEEN LOW. NEW ORDER FOR 250 BOLUS OF NS. PT TOLERATED WELL WILL RECHECK BLOOD PRESSURE. PT CALL LIGHT ACCESSIBLE. REGULAR ROUNDING AND CARE WILL CONTINUE UNTIL REPORT GIVEN TO ONCOMING NURSE.
[2024-07-25 07:32] VITALS: BP 94/60
[2024-07-25] MEDS ORDERED: Buprenorphine HCL/Naloxone HCL 2-0.5MG 1 EA SL SCH (09:00)
[2024-07-25] MEDS ORDERED: Buprenorphine HCL/Naloxone HCL 8MG-2MG Tab SL SCH (09:00)
--- NOTE | 2024-07-25 11:02 | NUR ---
Spiritual Care Visit. Briefly visited with Pt. to inform him that Pickle Cutterpaxton Pike would see him later today.
--- NOTE | 2024-07-25 14:05 | NUR ---
Spiritual Care Visit conducted. Kike (pt) is awake and alert. Pt expresses that scripture previously shared (Oscar 6:25-27) was deeply meaningful and reiterates his gratitude for this throughout the visit. Provided space to examine other scripture and helped pt understand other theological questions. Conducted life review and provided compassionate listening for pt and discussed at length stigmas surrounding substance use in [place] culture. Pt expresses emotional relief in the form of laughter. Encouraged pt in his recovery journey while normalizing pt's challenging stay at the hospital. Pt intends to connect with like-minded individuals and hopes to form connections not burdened by the use of substances. Prayed with pt and he thanked me for the visit.
[2024-07-25 15:54] VITALS: BP 96/61
[2024-07-25 19:15] VITALS: BP 82/54
--- NOTE | 2024-07-25 19:19 | NUR ---
SHIFT SUMMARY PT IS A/OX4. 1 PERSON ASSIST WITH FWW. PT CONTINUES TUBE FEEDINGS AT 70 ML/HR, 100ML FLUSH Q4. SWALLOW STUDY COMPLETED THIS MORNING. EXPECTED PEG TUBE PLACEMENT TOMORROW. PT CALLS APPROPRIATELY USING THE CALL LIGHT.
[2024-07-26 04:21] VITALS: BP 85/51
[2024-07-26 05:22] LABS: Calcium, Blood 8.6 mg/dL (8.5-10.1); Creatinine, Blood 0.27 mg/dL (0.60-1.20); Potassium, Blood 4.1 mmol/L (3.5-5.5)
[2024-07-26 06:10] VITALS: BP 98/48
--- NOTE | 2024-07-26 06:25 | NUR ---
STRIKER OUT SUMMARY PT A/OX3-4; FORGETFUL. NO ACUTE EVENTS. PT SUBOXONE INCREASED PER DR ORDER; NOTICED INCREASED SEDATION WITH MED CHANGE. OXYGEN SATS WNL. ASSISTED PT WILL FULL SHOWER AND COMPLETE BED CHANGE. PT NG TUBE FEEDINGS DISCONTINUED AT MIDNIGHT PER ORDER. PT ABLE TO MAKE NEEDS KNOWN. CALLING APPROPRIATELY. CARE WILL CONTINUE UNTIL REPORT GIVEN TO ONCOMING NURSE.
[2024-07-26 07:14] VITALS: BP 83/50
[2024-07-26] MEDS ORDERED: Lactated Ringer's 1,000 ML IV SCH (07:45)
[2024-07-26] MEDS ORDERED: propofoL 40 ML IV ONE (09:07)
[2024-07-26] MEDS ORDERED: CeFAZolin Sodium 2,000 MG in NS 100 ML IV SCH (09:35)
[2024-07-26 09:50] VITALS: BP 90/52
--- NOTE | 2024-07-26 10:02 | NUR ---
07/26/24 1002 Sravanthi Braswell WITH BRITTANY GARCIA; SEE ANESTHESIA RECORDS.
[2024-07-26] MEDS ORDERED: Ketamine HCl 100 MG / ML 5ML Vial ONE (10:17)
[2024-07-26] MEDS ORDERED: Ondansetron HCl 2 MG / ML 2ML Vial IV PRN (12:50)
[2024-07-26] MEDS ORDERED: Ketorolac Tromethamine 15mg Vial IV ONE (12:50)
[2024-07-26] MEDS ORDERED: Ipratropium/Albuterol SulF 2.5-0.5MG/3 ML Amp INH PRN (13:15)
--- NOTE | 2024-07-26 13:53 | NUR ---
LATE ENTRY--PT BACK FROM PROCEDURE. ALERT AND ORIENTED X4, ABLE TO EXPRESS NEEDS. REPORTS SOME ABDOMENAL DISCOMFORT. SITE WNL NO DRAINAGE NOTED
--- NOTE | 2024-07-26 17:01 | NUR ---
PT PAIN CURRENLTY UNDER CONTROL WITH MEDICATION REGIMEN. ALERT AND ORIENTED. SITTING UP IN THE CHAIR. PT 1 ASSIST WITH FWW AND GAIT BELT, CALLS APPROPRIATELY. TUBE FEEDINGS THROUGH NEW G TUBE TO START AT 1800 ORDERED
[2024-07-26 17:29] VITALS: BP 87/55
[2024-07-26] MEDS ORDERED: Ketorolac Tromethamine 15mg Vial IV PRN (17:30)
--- NOTE | 2024-07-26 17:34 | NUR ---
PT BEGINNING TO FEEL PAIN IN ABDOMEN. PER DR. MCGHEE, ORDER 15 MG TOLORADOL IV Q 6HR PRN WITH MAX 4 DOSES.
--- NOTE | 2024-07-26 18:39 | NUR ---
G TUBE FEEDINGS RESTARTED AT PREVIOUS RATE/ AT GOAL. PT EDUCATED TO CALL IF CRAMPING OCCURS
[2024-07-26 19:30] VITALS: BP 87/50
[2024-07-26] MEDS ORDERED: Buprenorphine HCL/Naloxone HCL 2-0.5MG 1 EA SL SCH (21:00)
[2024-07-27 04:12] VITALS: BP 82/50
--- NOTE | 2024-07-27 04:15 | NUR ---
TEACHER SUMMARY: PT A&O X4. MAKES NEEDS KNONW. G TUBE FEEDING INFUSING WITHOUT COMPLAINTS. NO RESIDUAL. NO ACUTE EVENTS T/O SHIFT. BED IN LOWEST POSITION. CALL LIGHT IN REACH. CARES ONGOING ORDERED.
[2024-07-27 07:42] VITALS: BP 80/47
[2024-07-27 16:22] VITALS: BP 87/42
--- NOTE | 2024-07-27 17:41 | NUR ---
NO ACUTE CHANGES THIS SHIFT. PT TOLORATING TUBE FEEDINGS AT GOAL RATE. NO N/V, C/O OF ABD PAIN AT G TUBE SITE. TREATED PER EMAR. TUBE SITE DRESSING C/D/I. CALLS APPROPRIATELY, UP IN CHAIR FOR MAJORITY OF SHIFT.
[2024-07-27 19:32] VITALS: BP 85/47
--- NOTE | 2024-07-28 03:39 | NUR ---
PEDIGREE RESEARCHER SUMMARY: PT A&O X4. MAKES NEEDS KNONW. NO ACUTE EVENTS T/O SHIFT. TURN Q2H SCHEDULE FOLLOWED. PT TOLERATING TUBE FEEDINGS. MEDICATED PER EMAR ORDERS FOR PAIN; EFFECTIVE. CARES ONGOING ORDERED.
[2024-07-28 04:23] VITALS: BP 89/48
[2024-07-28 07:18] VITALS: BP 85/48
--- NOTE | 2024-07-28 07:27 | NUR ---
ASSUMPTION OF CARE: ASSUMED CARE OF PATIENT. SLEEPING DURING SHIFT CHANGE REPORT. PEG @ 70mL/hr. BED IN LOWEST POSITION. CALL LIGHT WITHIN REACH.
--- NOTE | 2024-07-28 10:59 | NUR ---
PT C/O PAIN NOT RELIEVED c APAP. PREVIOUSLY ON TORADOL BUT REACHED 5-DAY MAX. PATIENT ALSO ON SUBOXONE SO MANY MEDS WILL COUNTERACT. DR. MONSIVAIS NOTIFIED AND WILL REVIEW MEDICATIONS.
[2024-07-28] MEDS ORDERED: Morphine Sulfate 4 MG/1 ML Injection IV PRN (12:00)
[2024-07-28] MEDS ORDERED: Morphine Sulfate 4 MG/1 ML Injection IV ONE (12:00)
[2024-07-28 15:14] VITALS: BP 100/60
--- NOTE | 2024-07-28 17:48 | NUR ---
END OF SHIFT SUMMARY: A&Ox4. PLEASANT AND COOPERATIVE WITH CARE. CALLS APPROPRIATELY AND IS ABLE TO ADVOCATE NEEDS EFFECTIVELY. CONTINENT OF BOWEL AND BLADDER. 1PA c FWW TO BATHROOM TODAY WHEN WORKING WITH PT/OT. CONTINUE c NPO STATUS PER ST. MEDS CRUSHED VIA PEG OR IV ONLY x SUBOXONE FILM. C / O PAIN TODAY, WORSENED SINCE STOPPING TORADOL. ADDITION OF MORPHINE SULFATE TO REGIMEN SUFFICIENT FOR PAIN CONTROL. DENIED BY [facility] TO SUBOXONE. BED IN LOWEST POSITION, CALL LIGHT WITHIN REACH, ALL NEEDS MET. REPORT TO ONCOMING NURSE.
--- NOTE | 2024-07-28 19:45 | NUR ---
ASSUMPTION OF CARE: PT RESTING COMFORTABLY IN BED AT TIME OF SHIFT CHANGE. PEG TUBE FEEDING INFUSING AT 70ML/HR. BED IN LOWEST POSITION. CALL LIGHT IN REACH.
[2024-07-28 19:51] VITALS: BP 91/54
[2024-07-29 02:54] VITALS: BP 85/54
--- NOTE | 2024-07-29 04:54 | NUR ---
AUTO BRAKE MECHANIC SUMMARY: PT A&O X4. MAKES NEEDS KNOWN AND USES CALL LIGHT APPROPRIATELY. MEDICATED X1 FOR PAIN PER EMAR ORDERS; EFFECTIVE. NO ACUTE EVENTS T/O SHIFT. TURN Q2H SCHEDULE IN PLACE. PEG TUBE FEEDING RUNNING AT 70ML/HR. TOLERATING FEEDS. BED IN LOWEST POSITION. CALL LIGHT IN REACH. CARES ONGOING ORDERED.
[2024-07-29 07:18] VITALS: BP 84/47
--- NOTE | 2024-07-29 07:56 | NUR ---
ASSUMPTION OF CARE: ASSUMED CARE OF PATIENT. ASLEEP DURING SHIFT CHANGE REPORT. LYING IN BED c HOB ELEVATED. BREATHING EVEN AND UNLABORED. ROOM AIR. PEG FEEDING @ 70mL/hr. BED IN LOWEST POSITION. CALL LIGHT WITHIN REACH. NO ACUTE NEEDS.
[2024-07-29 09:28] LABS: Hematocrit 26.6 % (37.0-53.0); Hemoglobin 8.3 g/dL (13.5-17.5)
[2024-07-29 09:39] LABS: Bun/Creatinine Ratio 85.7 (12.0-20.0); Calcium, Blood 8.1 mg/dL (8.5-10.1); Creatinine, Blood 0.32 mg/dL (0.60-1.20); Potassium, Blood 4.2 mmol/L (3.5-5.5)
[2024-07-29 15:27] VITALS: BP 87/50
--- NOTE | 2024-07-29 18:04 | NUR ---
END OF SHIFT SUMMARY: A&Ox4. PLEASANT AND COOPERATIVE WITH CARE. CALLS APPROPRIATELY AND IS ABLE TO ADVOCATE NEEDS EFFECTIVELY. CONTINENT OF BOWEL AND BLADDER. 1PA c FWW. CONTINUE c NPO STATUS PER ST. MEDS CRUSHED VIA PEG OR IV ONLY x SUBOXONE FILM. PAIN IMPROVED TODAY. TUBE FEEDING INCREASED TO 70mL CONTINUOUS c 30mL FLUSH q4h. BED IN LOWEST POSITION, CALL LIGHT WITHIN REACH, ALL NEEDS MET. REPORT TO ONCOMING NURSE.
[2024-07-29 19:16] VITALS: BP 88/60
[2024-07-30 04:32] VITALS: BP 93/55
--- NOTE | 2024-07-30 05:29 | NUR ---
SUMMARY: PT A/OX4, CALLS APPROPRIATELY TO SPECIFY NEEDS AND IS PLEASANT AND COOPERATIVE W/CARE. HE'S CONTINENT OF BOWEL AND BLADDER AND IS UP W/1PA W/FWW TO BS. PT REMAINS NPO W/MEDS CRUSHED VIA PEG TUBE AND JEVITY INFUSES AT 80 ML/HR W/Q4H 30 ML WATER FLUSHES. HE APPEARS VERY CACHECTIC W/MEPILEXES APPLIED TO BONY PROMINENCES AND TURN SCHEDULE MAINTAINED. EGGCRATE PLACED ON BED THIS SHIFT AND KPAD IS IN PLACE AD ADI FOR IMPROVED COMFORT. HE C/O BACK AND L.LEG PAIN W/PRN IV MORPHINE PROVIDED PER EMAR. NO ACUTE CHANGES, VSS/AFEBRILE. REPORT PROVIDED TO DAY RN.
[2024-07-30 07:28] VITALS: BP 91/51
[2024-07-30] MEDS ORDERED: Metoprolol Succinate 25 MG TABCR PO SCH (09:00)
[2024-07-30] MEDS ORDERED: Carvedilol 3.125 MG Tab PO SCH (09:30)
[2024-07-30 15:43] VITALS: BP 85/53
[2024-07-30] MEDS ORDERED: Magnesium Hydroxide Conc 10 ML UDC PO SCH (17:00)
--- NOTE | 2024-07-30 17:02 | NUR ---
Spiritual Care Visit. Pt. is awake and welcomes my visit. Facilitated an update. Pt. displayed evidence of wanting to get stronger but had a difficult time moving himself in bed. Considered matters of cheyenne and belief. Listened with empathy and a calming presence. Pt. displays interest in physical activity, and verbalizews his desire to be able to play basketball, and run. Listen with the ear of the assistant tennis coach and seek to encourage Pt. to work on gaining weight and getting stronger. Pt. verbalizes agreement. Prayed with Pt. Pt. verbalized gratitude for the spiritual care visit.
--- NOTE | 2024-07-30 19:52 | NUR ---
SUMMARY- PT A/O X4, USES CALL LIGHT APPROPRIATE. ABLE TO GET UP WITH SBA WALKER AND AMBULATED TO BATHROOM TODAY WITH PHYSICAL THERAPY AND SAT IN THE CHAIR FOR A FEW HOURS TODAY. BOWEL TONES HYPOACTIVE. ABD TAUGHT, DENIES NAUSEA. NO BM SINCE 06/24, STARTED MOM THIS AM AND A SUPPOSITORY AT 1630/ NO RESULTS. ORDERS FOR ADDITIONAL MOM TO BE GIVEN. PT IS NPO, BUT STATES HE IS DREAMING ABOUT PIZZA AND REALLY WANTS TO EAT. PT TOLERATING TUBE FEEDS BUT HAS BEEN UNABLE TO GAIN WEIGHT, NUTRITION WORKING WITH THIS PT. CT OF ABD OBTAINED, TRYING TO R/O MALAGNINCY. BLOOD PRESURE LOW AND UNABLE TO ADMIN CARDIAC MEDS, DR MONSIVAIS AWARE. PAIN CONTROLLED WITH AM SUBOXONE AND HAD MORPHINE 2MG ONCE FOR BTP THIS SHIFT. REPORTED TO JT ANDREW
[2024-07-30 20:45] VITALS: BP 85/51
[2024-07-30] MEDS ORDERED: Losartan Potassium 25 MG Tab PO SCH (21:00)
[2024-07-31 02:43] VITALS: BP 87/55
[2024-07-31] MEDS ORDERED: Lactulose 20 GM/30 ML UDC PO ONE (07:25)
[2024-07-31 07:45] VITALS: BP 90/49
[2024-07-31] MEDS ORDERED: Enoxaparin 60 MG/0.6 ML SYR SC SCH (09:30)
--- NOTE | 2024-07-31 11:22 | NUR ---
1120- call TO DR TAPIA'S CELL PHONE, LEFT INFORMATION REGAURDING GI CONSULT FOR WEIGHT LOSS AND ELEVATED CA AG.
[2024-07-31] MEDS ORDERED: Mineral Oil 133 ML Enema PR PRN (11:30)
[2024-07-31 16:08] VITALS: BP 87/50
[2024-07-31] MEDS ORDERED: Lansoprazole 15 MG TAB.RAP.DR PT SCH (18:16)
[2024-07-31] MEDS ORDERED: Polyethylene Glycol 3350 17 gm PO ONE (19:00)
[2024-07-31 19:31] VITALS: BP 89/58
--- NOTE | 2024-07-31 20:18 | NUR ---
SUMMARY- PT A/O X4, UP IN THE CHAIR MOST OF THE DAY. TOLERATING TUBE FEEDS TO GOAL, RESIDUAL CHICK 100ML THIS AM. DENIES NAUSEA. FINALLY HAD A XXXLG BROWN HARD STOOL APPROX SIZE 3"X12"(SIZE OF MY FOREARM) AFTER LAXATIVE REGIMIN AND STARTING ON MIRILAX. NO BLOOD OR FAT NOTED IN STOOL. DR TAPIA CONSULTED, EXPLAINED THAT PT HAS A STRICTURE AND NEEDS PROCEDURE AT A HOSPITAL THAT PERFORMS THE SURGERY. PT CONT TO HAVE LOW, STABLE BP'S. DR MONSIVAIS OK WITH COREG TO BE GIVEN SBP >85. PT DOES NOT COMPLAIN OF DIZZINESS. REPORTED TO NOC BISHNU JACK
[2024-07-31] MEDS ORDERED: Carvedilol 3.125 MG Tab PO SCH (21:00)
[2024-08-01] VITALS (8 sets, daily range): BP systolic 77–90; BP diastolic 43–53
--- NOTE | 2024-08-01 05:38 | NUR ---
SHIFT SUMMARY PT SLEPT INTERMITTENTLY DURING THE NIGHT. MEDICATED FOR PAIN X1 PER EMAR. PT REPOSITIONED Q2 HRS. MEPELEXES INTACT TO SACRUM AND SPINE. TUBE FEED RUNNING PER ORDER AT GOAL RATE. BLOOD PRESSURES CONTINUE TO RUN SOFT. BED IN LOWEST POSITION, CALL LIGHT WITHIN REACH, SIDERAILS UP X2.
--- NOTE | 2024-08-01 07:36 | NUR ---
ASSUMPTION OF CARE: ASSUMED CARE OF PATIENT. AWAKE DURING SHIFT CHANGE REPORT. LYING IN BEDNG IN BED c HOB ELEVATED. BREATHING EVEN AND UNLABORED. CONTINUOUS FEEDING @ 80mL/hr c 30mL FLUSH q4h. REQUESTING PAIN MEDICATION BUT SBP <85. LOWEST POSITION. CALL LIGHT WITHIN REACH. NO ACUTE NEEDS.
[2024-08-01] MEDS ORDERED: Polyethylene Glycol 3350 17 gm PO ONE (08:00)
--- NOTE | 2024-08-01 18:07 | NUR ---
END OF SHIFT SUMMARY: A&Ox4. PLEASANT AND COOPERATIVE WITH CARE. CALLS APPROPRIATELY AND IS ABLE TO ADVOCATE NEEDS EFFECTIVELY. CONTINENT OF BOWEL AND BLADDER; XXL BM TODAY. 1PA c FWW. CONTINUE c NPO STATUS PER ST. MEDS CRUSHED VIA PEG OR IV ONLY x SUBOXONE FILM. MEDICATED x2 PRN PAIN IN "KIDNEYS AND PEG SITE.". CONTINUES TO RUN 80s/50s c MAP 54-64; PROVIDER NOTIFIED. NO CHANGES TO MEDICATIONS AT THIS TIME. [place]F [place]; AWAITING INSURANCE AUTHORIZATION. BED IN LOWEST POSITION, CALL LIGHT WITHIN REACH, ALL NEEDS MET. REPORT TO ONCOMING NURSE.
[2024-08-01] MEDS ORDERED: Enoxaparin 40 MG/0.4 ML SYR SC SCH (21:00)
[2024-08-02 04:00] VITALS: BP 83/48
--- NOTE | 2024-08-02 05:41 | NUR ---
SHIFT SUMMARY PT SLEPT INTERMITTENTLY DURING THE SHIFT. MEDICATED FOR PAIN PER EMAR. THIS AM, BP WAS TOO LOW FOR IV MORPHINE- BENGAY ADMINISTERED AND POSITION CHANGED. PT TURNED AND REPOSITIONED THROUGH THE NIGHT. TF INFUSING AT GOAL RATE OF 80ML/HR WITH WATER 30ML/4 HRS. RESIDUAL CHECKED AND WAS 55ML. OPEN AREA TO POSTERIOR ASPECT OF DISTAL RIGHT CALF- MEPELEX AND TEGADERM PLACED. BED IN LOWEST POSITION, CALL LIGHT WITHIN REACH, SIDERAILS UP X2.
[2024-08-02 08:07] VITALS: BP 92/53
[2024-08-02 16:18] VITALS: BP 87/56
[2024-08-02] MEDS ORDERED: Carvedilol 3.125 MG Tab PO SCH (17:00)
--- NOTE | 2024-08-02 17:17 | NUR ---
SHIFT SUMMARY: ASSUMED CARE OF PT AT 1300. PT ALERT AND ORIENTED X4, ABLE TO FOLLOW COMMANDS AND MAKE NEEDS KNOWN. BP SOFT MAP 60-65, ASYMPTOMATIC, MD AWARE. HR STABLE. AFEBRILE. SPO2 >98% ON ROOM AIR. LUNG SOUNDS CLEAR THROUGHOUT. PULSES PALPABLE. ABD SOFT, NON TENDER, BOWEL SOUNDS +. PT WITH PEG TUBE PLACEMENT. JEVITY 1.5 INFUSING PER ORDERES. CONT OF URINE AND BOWEL. PT MEDICATED X2 FOR PAIN. CURRENTLY SITTING IN RECLINER, DENIES NEEDS AT THIS TIME. CALL LIGHT IN REACH, WILL REPORT TO ONCOMING RN.
[2024-08-02 19:15] VITALS: BP 94/57
[2024-08-02] MEDS ORDERED: Losartan Potassium 25 MG Tab PO SCH (21:00)
[2024-08-03 03:00] VITALS: BP 87/48
--- NOTE | 2024-08-03 05:32 | NUR ---
SHIFT SUMMARY PT SLEPT LONG INTERVALS THROUGH THE NIGHT. BP CONTINUES TO RUN LOW, PT ASYMPTOMATIC. MEDICATED FOR PAIN PER EMAR. PT REPOSITIONED DURING THE NIGHT. TUBE FEEDS CHANGED TO BOLUS FEEDS DURING THE DAY AND CONTINUOUS FEEDS DURING THE NIGHT- PT DENIES ANY N/V WITH CHANGE IN TF ORDERS. BED IN LOWEST POSITION, CALL LIGHT WITHIN REACH, SIDERAILS UP X2.
[2024-08-03 07:09] VITALS: BP 87/49
--- NOTE | 2024-08-03 18:30 | NUR ---
assumed care a/o x4 flat affect but cooperative with care. tube feeding in progress and geovani well. no c/o fullness, nausea or discomfort. pain focused to abd at peg site and back along spine. pt given suboxsone but is also covered with prn medication. 0800 tube feeding stopped and at 0930 bolus given per order. 1230 residuals check and 150mls was noted. feeding was held 1500 residuals were zero and bolus was given. Pt again medicated for abd and back pain. pt up in chair was able to transfer with minimal assistence. edu given to pt about future use of peg tube
[2024-08-03 20:24] VITALS: BP 84/50
[2024-08-04 03:13] VITALS: BP 91/50
--- NOTE | 2024-08-04 05:16 | NUR ---
SHIFT SUMMARY PT TOOK SHOWER AT START OF SHIFT. MEPELEX REAPPLIED TO SPINE, COCCYX, AND R DISTAL CALF AFTER SHOWER. SKIN INTACT WITH BLANCHABLE REDNESS TO SPINE AND COCCYX, OPEN WOUND TO CALF FROM DISLODGED SCAB. GAUZE CHANGED TO PEG SITE. CONTINUOUS TUBE FEEDS STARTED AFTER SHOWER AT APPROX 2030. RESIDUAL BEFORE FEEDS= 65ML. PT MEDICATED FOR PAIN X2 PER EMAR. BLOOD PRESSURE REMAINS SOFT, BUT MAP MAINTAINED OVER 60. PT REPOSITIONED THROUGH THE NIGHT. SLEPT LONG INTERVALS. BED IN LOWEST POSITION, CALL LIGHT WITHIN REACH, SIDERAILS UP X2.
[2024-08-04 07:29] VITALS: BP 86/48
[2024-08-04] MEDS ORDERED: Polyethylene Glycol 3350 17 gm PO SCH (10:00)
[2024-08-04 15:42] VITALS: BP 84/42
--- NOTE | 2024-08-04 18:08 | NUR ---
SUMMARY- PT A/O X4, USES CALL LIGHT TO MAKE NEEDS KNOWN. ABLE TO AMBULATE SBA WALKER ANE GAIT BELT, ADQ STRENGTH. STEADY GAIT. OCC KNEES BUCKLED LAST WEEK, CAUTIOUS ABOUT FALLS. PT SAT UP IN THE CHAIR ALL DAY. ADJUSTS WEITHG, SITTING ON PILLOWS. MEIPLEX INTACT TO BUTTOCK AND SPINE. PT REMAINS NPO, CLEARED FOR ICE CHIPS SPARINGLY. PT HAD XXLG FORMED BROWN BM TODAY AFTER MILK OF MOM AND DSS, ADDED MIRILAX PT HAS A HX OF CONSTIPATION. TOLERATED TUBE FEEDS, RESIDUAL LESS THAN 50ML WITH EACH FEET. PAIN CONROLLED WITH SUBOXONE AND MORPINE 2MG ONCE TODAY FOR BREAKTHROUGH PAIN. WILL REPORT TO NOC BISHNU
[2024-08-04 19:33] VITALS: BP 86/50
[2024-08-05 03:44] VITALS: BP 85/52
--- NOTE | 2024-08-05 06:01 | NUR ---
SHIFT SUMMARY: Pt is admitted for septic shock and is a full code. Is alert and able to make needs known. ADLs have been 1p. Pain has been managed ith PRN medications. PICC to upper right is patent with dressing that is CDI. PEG tube in place and running jevity 1.2 at 55ml/h with 30ml water flush q4h.
[2024-08-05 08:48] VITALS: BP 85/49
[2024-08-05] MEDS ORDERED: Buprenorphine HCL/Naloxone HCL 2-0.5MG 1 EA SL SCH (14:00)
[2024-08-05 15:31] VITALS: BP 85/53
[2024-08-05 19:35] VITALS: BP 104/61
--- NOTE | 2024-08-05 19:42 | NUR ---
SUMMARY- PT A/O X4, USES CALL LIGHT TO MAKE NEEDS KNOWN. AMBULATES SBA WITH WALKER TO BATHROOM. STARTED HAVING LOOSE BM THIS AM AFTER BOWEL REGIMINE STARTED AND PT HAD XXXXLG BM YESTERDAY. DC'D MOST ROUTINE BOWEL MEDS AND WILL HOLD STOOL SOFTNERS FOR NOW. PT VOIDS IN URINAL, LIGHT YELLOW. TOLERATING TUBE FEEDS WITH RESIDUAL UNDER 150ML EVERY TIME. DC'D MORPHINE IV AND ADDED ADDITIONAL SUBOXONE 1400 DOSE. PT STATED EFFECTIVE RELEIF TODAY. WORKED WITH PHYSICAL TX WITH IMPROVEMENT IN STRENGTH. PT IS DAILY WEIGHT AND GAINING SLOWLY (88-93LB) REPORTED TO JAYLEN WATERS RN.
[2024-08-06 05:56] VITALS: BP 95/51
--- NOTE | 2024-08-06 06:34 | NUR ---
TUBE FEED INFUSING AT 55/ML PATIENT APPEARS TO BE TOLERATING WELL. Q4hr WATER FLUSHES. NO COMPLAINTS OF PAIN. APPEARED TO HAVE SLEPT WELL. USING URINAL. NO NEW ISSUES. CONTINUE CARE
[2024-08-06 08:03] VITALS: BP 92/46
[2024-08-06] MEDS ORDERED: Spironolactone 12.5 MG TAB PO SCH (09:00)
--- NOTE | 2024-08-06 11:33 | NUR ---
1020 CALLED NOREEN SHAW GIVE ALDACTONE BP 92/46 P 67
[2024-08-06] MEDS ORDERED: Rivaroxaban 10 MG Tab PO SCH (18:00)
--- NOTE | 2024-08-06 18:09 | NUR ---
NO ACUTE CHANGES THIS SHIFT. PLAN FOR FACILITY DISCHARGE TOMORROW AT 1100. PT DENIES CHEST PAIN/PRESSURE. MEDICATIONS ADMINISTERED ORDERED. PT CALLS APPROPRIATELY, ORIENTED X4, 1 ASSIST WITH FWW
[2024-08-06 19:19] VITALS: BP 87/50
[2024-08-06] MEDS ORDERED: Buprenorphine HCL/Naloxone HCL 8MG-2MG Tab SL SCH (22:00)
[2024-08-07 03:35] VITALS: BP 86/51
[2024-08-07 05:12] LABS: Hematocrit 24.8 % (37.0-53.0); Hemoglobin 7.8 g/dL (13.5-17.5); Platelet Count 329 K/mm3 (150-400)
--- NOTE | 2024-08-07 05:57 | NUR ---
SHIFT SUMMARY; PATIENT SLEPT IN LONG INTERVALS, AFTER SHOWER & SHAVE. PEG TUBING STARTED 2229. BPS SOFT. LABS DRAWN EASILY THRU PIC LINE. REMAINS IN CONTACT PRECAUTIONS FOR HX OF MRSA.
[2024-08-07] MEDS ORDERED: Acetaminophen650 M1 PO (08:22)
[2024-08-07] MEDS ORDERED: JUVEN PACKET1 EAC3 PO (08:23)
[2024-08-07] MEDS ORDERED: SUBOXONE 2 MG-1 EAC1 SL (08:23)
[2024-08-07] MEDS ORDERED: CARV3.125 PT (08:24)
[2024-08-07] MEDS ORDERED: JARDIANCE10 MG PT (08:24)
[2024-08-07] MEDS ORDERED: Prevacid Soluta30 MG PT (08:25)
[2024-08-07] MEDS ORDERED: LOSA25 PT (08:25)
[2024-08-07] MEDS ORDERED: DULCOLAX400 MG/5 M PT (08:26)
[2024-08-07] MEDS ORDERED: MELATONIN5 M1 PT (08:26)
[2024-08-07] MEDS ORDERED: SPIR25 PT (08:27)
[2024-08-07] MEDS ORDERED: XARELTO20 MG PT (08:27)
[2024-08-07] MEDS ORDERED: Seroquel Xr50 MG PT (08:27)
--- NOTE | 2024-08-07 11:32 | NUR ---
DISCHARGE. PT DISCHARGED TO FACILITY IN [place], [place]. [facility]. THIS RN ATTEMPTED TO CALL RN FOR REPORT BUT THEY WERE UNAVAILABE AT THIS TIME. RN WILL RETURN CALL WHEN AVAILABLE. PT IS ALERT AND ORIENTED X4, 1 ASSIST WITH FWW. TRANSPORTED BY WHEELCHAIR. PT GIVEN MORNING TUBE FEED AND MEDICATIONS. PT EXPRESSED CONCERN FOR CLINICAL NURSE REVIEWER DURING TRANSPORT. DR. KEITH NOTIFIED, PER MD PT DID RECIEVE INCREASED DOSE LAST NIGHT AND THIS MORNING. PT VERBALIZED UNDERSTANDING. ALL PERSONAL ITEMS LEFT WITH PT. R/A
--- NOTE | 2024-08-07 13:02 | NUR ---
REPORT GIVEN TO MICHAEL AT [facility]. RN IS AWARE OF PICC LINE
--- NOTE | 2024-08-07 13:08 | NUR ---
DR. KEITH AWARE THAT PICC LINE REMAINED IN RUE.
== END 2024-08-07 11:13 | DRG 870 ==
LOC: ER 08:05 → ERHOLD 10:44 → ICUE 10:44 → MEDS 10:44 → ICUE 14:36 → MEDS 07-18 09:46 → ENPENDDIS 08-07 09:59 → MEDS 08-07 11:13
PROVIDERS: Emergency Medicine; Family Medicine; Hospitalist; Internal Medicine; Internal Medicine Critical Care Medicine; Student in an Organized Health Care Education/Training Program; ADMIT Internal Medicine
PROC: 0BH17EZ Insertion of Endotracheal Airway into Trachea, Via Natural or Artificial Opening (ICD-10-PCS; principal; 2024-06-29)
PROC: 5A1955Z Respiratory Ventilation, Greater than 96 Consecutive Hours (ICD-10-PCS; 2024-06-29)
PROC: 30233N1 Transfusion of Nonautologous Red Blood Cells into Peripheral Vein, Percutaneous Approach (ICD-10-PCS; 2024-06-29)
PROC: 0DH67UZ Insertion of Feeding Device into Stomach, Via Natural or Artificial Opening (ICD-10-PCS; 2024-06-29)
PROC: 3E0G76Z Introduction of Nutritional Substance into Upper GI, Via Natural or Artificial Opening (ICD-10-PCS; 2024-06-29)
PROC: 3E033XZ Introduction of Vasopressor into Peripheral Vein, Percutaneous Approach (ICD-10-PCS; 2024-06-29)
PROC: 3E043XZ Introduction of Vasopressor into Central Vein, Percutaneous Approach (ICD-10-PCS; 2024-06-29)
PROC: 3E03329 Introduction of Other Anti-infective into Peripheral Vein, Percutaneous Approach (ICD-10-PCS; 2024-06-29)
PROC: 0DH63UZ Insertion of Feeding Device into Stomach, Percutaneous Approach (ICD-10-PCS; 2024-07-01)
PROC: 02HV33Z Insertion of Infusion Device into Superior Vena Cava, Percutaneous Approach (ICD-10-PCS; 2024-07-01)
PROC: B5181ZA Fluoroscopy of Superior Vena Cava using Low Osmolar Contrast, Guidance (ICD-10-PCS; 2024-07-01)
PROC: 0W9930Z Drainage of Right Pleural Cavity with Drainage Device, Percutaneous Approach (ICD-10-PCS; 2024-07-01)
PROC: 3E0G76Z Introduction of Nutritional Substance into Upper GI, Via Natural or Artificial Opening (ICD-10-PCS; 2024-07-26)
PROC: 0D738ZZ Dilation of Lower Esophagus, Via Natural or Artificial Opening Endoscopic (ICD-10-PCS; 2024-08-01)
DX: A41.02 Sepsis due to Methicillin resistant Staphylococcus aureus (principal); R65.21 Severe sepsis with septic shock; J96.01 Acute respiratory failure with hypoxia; E43 Unspecified severe protein-calorie malnutrition; J69.0 Pneumonitis due to inhalation of food and vomit; I50.21 Acute systolic (congestive) heart failure; J15.212 Pneumonia due to Methicillin resistant Staphylococcus aureus; J13 Pneumonia due to Streptococcus pneumoniae; Z68.1 Body mass index [BMI] 19.9 or less, adult; R64 Cachexia; E87.0 Hyperosmolality and hypernatremia; J93.9 Pneumothorax, unspecified; E87.1 Hypo-osmolality and hyponatremia; I82.622 Acute embolism and thrombosis of deep veins of left upper extremity; I47.10 Supraventricular tachycardia, unspecified; F11.23 Opioid dependence with withdrawal; F15.10 Other stimulant abuse, uncomplicated; F19.10 Other psychoactive substance abuse, uncomplicated; E16.2 Hypoglycemia, unspecified; T68.XXXA Hypothermia, initial encounter; D64.9 Anemia, unspecified; E83.39 Other disorders of phosphorus metabolism; R35.89 Other polyuria; K22.2 Esophageal obstruction; K59.00 Constipation, unspecified; R00.1 Bradycardia, unspecified; D69.6 Thrombocytopenia, unspecified; N18.31 Chronic kidney disease, stage 3a; F42.4 Excoriation (skin-picking) disorder; R23.4 Changes in skin texture
CPT/HCPCS: 0241U; 31500; 32551; 36415; 36430; 36556; 36569; 51702; 70450; 71045; 71260; 74177; 74230; 80047; 80048; 80053; 80069; 80076; 80202; 81003; 82140; 82306; 82330; 82570; 82607; 82728; 82746; 82803; 82947; 83540; 83550; 83605; 83690; 83735; 83935; 84100; 84300; 84443; 84484; 84540; 85014; 85018; 85025; 85027; 85049; 85520; 85610; 85730; 86304; 86364; 86480; 86850; 86900; 86901; 86920; 86923; 87040; 87070; 87075; 87077; 87102; 87106; 87147; 87184; 87186; 87205; 87206; 87389; 89051; 92526; 92610; 92611; 93005; 93010; 93306; 93971; 94002; 94003; 94640; 94660; 94664; 94667; 94668; 94760; 94762; 96365-59; 96375-59; 97110; 97110-CQ; 97112; 97116; 97162; 97165; 97530; 97535; 99285-25; A9270; C1726; C1751; C1769; J0330; J0456; J0572; J0690; J0696; J1265; J1644; J1650; J1885; J1940; J2060; J2250; J2270; J2310; J2405; J2470; J2543; J2704; J2919; J3010; J3370; J3411; J3475; J3480; J7030; J7040; J7042; J7050; J7060; J7120; J7799; P9016; Q9967